=== PATIENT | male | born 1930 | race Caucasian/White ===

== ENCOUNTER 2018-10-24 08:47 | Inpatient (IN) | payer MEDICARE, OTHER ==
[~2018-10-24] VITALS: Ht 175.3 cm; Wt 66.2 kg
[2018-10-24 09:03] VITALS: BP 145/82
[2018-10-24] MEDS ORDERED: IRON325 PO (09:05)
[2018-10-24 09:41] LABS: HEMATOCRIT 37.6 % (42.0-52.0); HEMOGLOBIN 12.8 gm/dL (14.0-18.0); MCH 32.5 pg (26.0-34.0); MCHC 34.1 g/dL (28.0-37.0); MCV 95.2 fL (80.0-100.0); MPV 7.3 fl. (7.2-11.1); NUCLEATED RBCS 0 /100WBC; PLATELET COUNT* 212 thou/uL (150-400); RBC 3.95 mil/uL (4.50-6.00); RDW-CV 13.6 % (10.5-14.5); WBC 9.5 thou/uL (4.0-11.0)
[2018-10-24 09:54] LABS: APTT 27.8 Seconds (25.0-31.3); INR 1.1
[2018-10-24 09:58] LABS: URINE BILIRUBIN NEGATIVE (Negative); URINE BLOOD TRACE (Negative); URINE CLARITY CLEAR; URINE COLOR YELLOW; URINE GLUCOSE-RANDOM NEGATIVE (Negative); URINE KETONES NEGATIVE (Negative); URINE LEUKOCYTES-REFLEX NEGATIVE (Negative); URINE NITRITE-REFLEX NEGATIVE (Negative); URINE PROTEIN TRACE (Negative); URINE UROBILINOGEN 0.2 E.U./dl (0.2-1.0)
[2018-10-24 10:05] LABS: ANION GAP 8 mmol/L (7-16); BUN 21 mg/dL (7-18); CALCIUM 8.7 mg/dL (8.5-10.1); CHLORIDE 97 mmol/L (98-107); CO2 25 mmol/L (21-32); CREATININE 1.1 mg/dL (0.6-1.3); GLUCOSE 108 mg/dL (70-99); POTASSIUM 4.4 mmol/L (3.5-5.1); SODIUM 130 mmol/L (136-145)
[2018-10-24 10:10] LABS: ALBUMIN 3.6 g/dL (3.4-5.0); ALKALINE PHOSPHATASE 51 U/L (46-116); CK-MB MASS 4.6 ng/mL (<0.5-3.6); NT-PRO BRAIN NAT PEPTIDE 6237 pg/mL (<300); SGOT 32 U/L (15-37); SGPT 26 U/L (30-65); TOTAL BILIRUBIN 1.1 mg/dL (<0.1-1.0); TOTAL PROTEIN 7.1 g/dL (6.4-8.2); TROPONIN-I LEVEL <0.06 ng/mL (<0.06)
[2018-10-24 10:11] LABS: ABSOLUTE BASOPHILS 0.2 thou/uL (0.0-0.2); ABSOLUTE LYMPHOCYTES 0.8 thou/uL (0.8-5.3); ABSOLUTE MONOCYTES 0.1 thou/uL (0.0-1.2); ABSOLUTE NEUTROPHILS 8.5 thou/uL (1.6-8.1); PLATELET ESTIMATE ADEQUATE
--- NOTE | 2018-10-24 10:52 | NUR ---
PT BACK FROM CT SCAN VIA STRETCHER
[2018-10-24 15:04] VITALS: BP 158/87
--- NOTE | 2018-10-24 17:17 | NUR ---
THIS NURSE GAVE REPORT TO ALEC VELEZ WHO IS TO ASSUME PT CARE INPATIENT NURSE. PT TO BE TAKEN TO ROOM 230 VIA STRETCHER BY THIS NURSE AND ASSIST X1. PT STILL ATTEMPTING TO PUT LEGS OVER BED. PT ALERT, DROWSY. PT TO BE TAKEN WITH FINISHING SUPERVISOR PLASTIC SHEETS. BELONGINGS PACKED AND PLACED IN BAG, TO BE TAKE TO ROOM WITH PT.
[2018-10-24 17:19] VITALS: BP 135/79
--- NOTE | 2018-10-24 17:40 | EKG ---
[place] [address] ELECTROCARDIOGRAM REPORT Name: BEATRIZ FORD Room: [address] ADM IN .R.#: [id number] Admission: 10/24/18 Attend Phys: Salma John MD Discharge: Date of : 10[birth year]02/[birth year] Report #: [id number] THIS REPORT FOR: //name// [facility] ED Test Date: 2018-10-24 Test Time: 08:59:06 Pat Name: BEATRIZ FORD Department: Room: [facility] Gender: Corporate Law Specialist: Lupe MIMS : 1930 Requested By: Benito Song Order Number: [id number] MD: Aleksander Gallegos Measurements Intervals [place] Rate: 80 P: 31 DE: 182 QRS: -95 QRSD: 151 T: -40 QT: 421 QTc: 486 Interpretive Statements Sinus rhythm Premature ventricular complexes RBBB and LAFB No previous ECG available for comparison Electronically Signed On 10-24-2018 17:40:13 CDT by Aleksander Gallegos [email or web address] <ELECTRONICALLY SIGNED> By: Aleksander Gallegos MD, [facility] 10/24/18 [id number] Aleksander Gallegos MD, [facility] /EPI
--- NOTE | 2018-10-24 17:55 | NUR ---
REC'D REPORT FROM BAG BAILER, PATIENT TO UNIT APPROX 173 VIA GURNEY AND ER STAFF. PATIENT LETHARGIC, MUMBLES NAME, BIRTHDATE. ABLE TO STATE THAT HE'S AT THE HOSPITAL. IMPULSIVE, ATTEMPTS TO PUT LEGS OVER SIDE RAILS. URINAL PROVIDED. BED ALARM IN PLACE. CALL LIGHT GIVEN. ORIENTED TO ROOM AND BED CONTROLS. FREQUENT CHECKS.
[2018-10-24 20:00] VITALS: BP 148/85
[2018-10-25] VITALS: BP 132/69
[2018-10-25 04:52] LABS: HEMATOCRIT 37.4 % (42.0-52.0); HEMOGLOBIN 12.7 gm/dL (14.0-18.0); MCH 32.7 pg (26.0-34.0); MCV 96.2 fL (80.0-100.0); MPV 7.8 fl. (7.2-11.1); RBC 3.89 mil/uL (4.50-6.00); RDW-CV 13.7 % (10.5-14.5); WBC 8.5 thou/uL (4.0-11.0)
[2018-10-25 04:56] VITALS: BP 129/59
[2018-10-25 05:27] LABS: ALBUMIN 3.2 g/dL (3.4-5.0); CALCIUM 8.3 mg/dL (8.5-10.1); CREATININE 1.1 mg/dL (0.6-1.3); POTASSIUM 4.1 mmol/L (3.5-5.1); TOTAL BILIRUBIN 1.5 mg/dL (<0.1-1.0); TOTAL PROTEIN 6.2 g/dL (6.4-8.2)
--- NOTE | 2018-10-25 06:48 | NUR ---
ASSUMED PT CARE AT 1930. ASSESSMENT COMPLETED CHARTED. UNABLE TO MAKE NEEDS KNOWN. PT TRIES TO GET UP WHEN HE HAS TO USE RESTROOM BUT IS TOO WEAK TO SIT UP, JUST TRIES TO PUT HIS LEGS OVER THE SIDE OF THE RAILS. NO C/O PAIN OR DISCOMFORT. AFEBRILE. COMMUNICATES NEEDS EFFECTIVELY WHEN ASKED. Q2TURN TO CHECK FOR INCONTINENCE WHICH HE HAS SOMETIMES. PT RESTING IN BED MOST OF THE NIGHT AND IS WANTING TO GET UP FOR BREAKFAST. WILL CONTINUE TO MONITOR.
[2018-10-25 08:39] VITALS: BP 149/78
--- NOTE | 2018-10-25 09:00 | NUR ---
REC'D REPORT FROM NOC RN, ASSUMED CARE OF PATIENT APPROX 0730. OX4, ABLE TO COMMUNICATE NEEDS TO STAFF. ASSESSMENT COMPLETE, VS OBTAINED. SHIP JOINER IN PLACE, SR. O2 SAT 95% RA. PATIENT ASSISTED TO BATHROOM BY NURSING STAFF, UNSTEADY GAIT, ABLE TO AMBULATE WITH ASSIST. EDUCATION GIVEN R/T FALL RISKS. PATIENT AGREEABLE TO FALL PROTOCOL. CALL LIGHT WITHIN REACH.
--- NOTE | 2018-10-25 11:18 | NUR ---
MET WITH PT TO DISCUSS HOME SITUATION/DC PLANNING. PT LIVES WITH SON. HE STATES HE IS INDEPENDENT AND ACTIVE. WAS WORKING IN YARD YESTERDAY AND STATES 'I DIDN'T DRINK ENOUGH WATER.' PT USES NO EQUIPMENT AND HASN'T HAD HH OR BEEN TO SNF. HE PLANS TO RETURN HOME AT DC. WILL FOLLOW
[2018-10-25 12:00] VITALS: BP 122/62
--- NOTE | 2018-10-25 13:30 | NUR ---
PATIENT HAS COMPLETED DC ORDER. REVIEWED DC INSTRUCTIONS AND MED LIST WITH PATIENT AND SON. ANSWERED QUESTIONS TO THEIR SATISFACTION. DISCONTINUED IV AND PROBATION AND PAROLE OFFICER. RETURNED MONITOR TO STORAGE. PATIENT IN POSSESSION OF ALL BELONGINGS. PATIENT'S SON BILL ACCOMPANIED PATIENT & VOLUNTEER TO FRONT ENTRANCE VIA WC. BILL TO TRANPORT PATIENT TO HOME VIA CAR.
--- NOTE | 2018-10-25 16:58 | NUR ---
PT. DISCHARGED TO HOME PRIOR TO O.T. EVAL. PLEASE ORDER FURTHER O.T. SERVICES IF NEEDED.
== END 2018-10-25 14:20 | disposition home or self-care (01) | DRG 640 ==
LOC: M.ERS 08:47 → M.TBA-ER 10:22 → M.2W 10:22
PROVIDERS: Family Medicine; ADMIT Internal Medicine
DX: E87.1 Hypo-osmolality and hyponatremia (principal); G92 Toxic encephalopathy

== ENCOUNTER 2018-12-23 11:08 | Inpatient (IN) | payer MEDICARE, OTHER | END 2018-12-27 16:29 | disposition short-term general hospital (02) | DRG 469 | LOC: M.ERS 11:08 → M.TBA-ER 12:34 → M.ORTHSURG 13:33 | PROVIDERS: ADMIT Internal Medicine | PROC: 0SRR0JZ Replacement of Right Hip Joint, Femoral Surface with Synthetic Substitute, Open Approach (ICD-10-PCS; principal; 2018-12-24) | DX: M80.051A Age-related osteoporosis with current pathological fracture, right femur, initial encounter for fracture (principal); G93.41 Metabolic encephalopathy; D62 Acute posthemorrhagic anemia; E44.0 Moderate protein-calorie malnutrition; Z68.1 Body mass index [BMI] 19.9 or less, adult; S72.001A Fracture of unspecified part of neck of right femur, initial encounter for closed fracture; R32 Unspecified urinary incontinence; N47.1 Phimosis; F03.90 Unspecified dementia, unspecified severity, without behavioral disturbance, psychotic disturbance, mood disturbance, and anxiety; D63.8 Anemia in other chronic diseases classified elsewhere; W01.0XXA Fall on same level from slipping, tripping and stumbling without subsequent striking against object, initial encounter; Y93.89 Activity, other specified; Y92.89 Other specified places as the place of occurrence of the external cause; Y99.8 Other external cause status; Z87.442 Personal history of urinary calculi ==

== ENCOUNTER 2018-12-27 11:10 | Inpatient (IN) | payer MEDICARE, OTHER ==
[~2018-12-27] VITALS: Ht 175.3 cm; Wt 58.5 kg
[~2018-12-27 11:10] MED LIST: DOK PLUS TABLE1 EACH PO; ELIQUIS5 MG PO; HYDROCODON-ACE1 EAC7 PO; IRON325 PO; PROTONIX40 M1 PO; THERA M PLUS T1 EAC2 PO
--- NOTE | 2018-12-27 16:30 | NUR ---
DISCHARGE NOTE - PT DC'ED TO INPT REHAB. SPOKE WITH ALEC PIMENTEL. NO QUESTIONS. ORDERS GIVEN. IV REMAINS IN PLACE PER . ALL BELONGINGS SENT WITH PT.
--- NOTE | 2018-12-27 18:50 | NUR ---
88 YR OLD MALE PATIENT ADMITTED TO ROOM 321 S/P ORIF OF HIS RIGHT HIP. PT IS A/O, EKWOK. PT SETTLED INTO BED, ORIENTED TO ROOM, BED CONTROLS AND FALL PRECAUTIONS. ADMISSION PROCESS COMPLETED. PT VOIDED 200 CC OF BLANE URINE AND HAD A PVR OF 24ML. FALL PRECAUTIONS AND HOURLY ROUNDING IN PLACE.
[2018-12-27 19:49] VITALS: BP 140/73
--- NOTE | 2018-12-28 01:32 | NUR ---
ASSUMED CARE @ 1929-12/27-SUNDAY.AWAKE IN BED W/ HOB UP.REFUSED ABDUCTOR PILLOW.PREFERS ROLLED BLANKET BETWEEN THIGHS WHILE IN BED.RIGHT LE UP ON A PILLOW @ 1929.SALINE LOCK LEAKING WHEN FLUSHED W/ NS @ 2029 & PULLED OUT. WANTS SCD'S ON @ 2109.MAKING NOISES @ 2314 & WANTS URINAL ON.NURSE PUTS, HOLDS,REMOVES & ERMPTIES URINAL @ NIGHT.PHOTOS TAKEN SCAB ABRASION LEFT ELBOW & DRY SKIN TEAR RIGHT UPPER ARM @ 2319.SEE PAIN MANAGEMENT @ 2342.ON HOURLY ROUNDS.ROUGH ROUNDER DOING ODD HOUR ROUNDS.
[2018-12-28 04:52] LABS: HEMATOCRIT 23.9 % (42.0-52.0); HEMOGLOBIN 7.9 gm/dL (14.0-18.0); MCH 31.2 pg (26.0-34.0); MCV 94.7 fL (80.0-100.0); MPV 8.1 fl. (7.2-11.1); RBC 2.53 mil/uL (4.50-6.00); RDW-CV 13.2 % (10.5-14.5)
[2018-12-28 05:05] LABS: CALCIUM 7.6 mg/dL (8.5-10.1); CREATININE 0.9 mg/dL (0.6-1.3)
--- NOTE | 2018-12-28 05:40 | NUR ---
SLEEPING SINCE 2004 & FROM 2300 TO 0400.AWAKENED BY LAB @ 0400 FOR BLOOD DRAW. USED URINAL X2.FIRST W/ASSIST.SECOND @ 0520-NURSE ONLY EMPTIES URINAL.ABLE TO DO OWN [facility] AFTER VOIDING.URINE ACCIDENT X2.TOOK ONE PACKAGE SALTINE CRACKERS HS SNACK.DRESSING SATURATED @ 0525 & CHANGED.
[2018-12-28 07:55] VITALS: BP 120/62
[2018-12-28 19:25] VITALS: BP 139/76
--- NOTE | 2018-12-29 01:36 | NUR ---
ASSUMED CARE @ -SAT.SITS IN RECLINER W/ LE'S UP.ASSISTED TO BED W/ 2 PERSONS.VERBAL CUES GIVEN TO DO 50% WB RIGHT LE.ROLLED BLANKET BETWEEN THIGHS WHILE IN BED.RIGHT LE UP ON A PILLOW.BED ALARM PUT ON @ 2049.URINAL W/IN REACH.SCD'S ON @ 2049.SEE PAIN MANAGEMENT @ 0034.RIGHT HIP DRSG SATURATED & CHANGED @ 0045.NURSE EMPTIES URINAL @ NIGHT.ON HOURLY ROUNDS.
--- NOTE | 2018-12-29 05:15 | NUR ---
SLEEPING SINCE 2100 & SLEPT GOOD ALL NIGHT.USED URINAL X6.NURSE EMPTIES URINAL.TOOK ONLY ONE PACKAGE SALTINE CRACKERS W/ H20 HS SNACKS.
[2018-12-29 07:55] VITALS: BP 149/70
--- NOTE | 2018-12-29 17:09 | NUR ---
PATIENT UP TO WHEELCHAIR ALL MORNING INTO AFTERNOON, THEN BACK TO WHEELCHAIR FOR EVENING MEAL. RIGHT HIP DRESSING REMAINS INTACT. PRN TYLENOL GIVEN X 2 THIS SHFIT FOR RIGHT HIP PAIN. PATIENT HAD A LARGE BM THIS AM. VOIDING PER URINAL. PATIENT UP WITH SBA WITH USE OF GAIT BELT AND WALKER.
[2018-12-29 19:25] VITALS: BP 125/57
--- NOTE | 2018-12-30 00:09 | NUR ---
ASSUMED CARE @ .AWAKE IN BED W/ HOB UP.BED ALARM ALREADY ON @ 1919.PANTS OFF @ 1934.TEMP @ 1924-99.0 ORAL.TEMP.RE-CHECKED @ 2314-.3 ORAL.SEE PAIN MANAGEMENT @ 2116.SCD'S ON @ 2119.RIGHT LE UP ON A PILLOW. ROLLED BLANKET ON BETWEEN THIGHS.REFUSED ABDUCTOR WEDGE.ON HOURLY ROUNDS. S
--- NOTE | 2018-12-30 05:26 | NUR ---
SEE 2ND PAIN MANAGEMENT @ 0231.AWAKE FROM 1999,2099 TO 040.SLEEPING @ 2200. FOUND SLEEPING @ 0400 & 0500.USED URINAL X5.URINE ACCIDENTS X2.DOES [facility] IND.TOOK 2 PACKAGES SALTINE CRACKERS W/ H20 HS SNACKS.
[2018-12-30 08:00] VITALS: BP 155/78
--- NOTE | 2018-12-30 11:18 | NUR ---
Nutrition: Consult received for "malnutirtion." Pt admitted to rehab with Rt femoral neck FX. Some depression d/t loss of . Started on antidepressant at HS, per chart review. Albumin 2.3, prealb 13.7. Eating 50-100% of meals. +BM. Wt stable 132#. RX: MVI, Fe. Pt appears thin, but I was unable to visit with him this morning as he was with therapies. Will defer malnutrition DX to physician. Will follow weekly on rehab unit. Mild risk.
--- NOTE | 2018-12-30 15:09 | NUR ---
UNABLE TO SEE PT.THIS TODAY HE WAS IN THERAPIES. REVIEWED CHART AND SPOKE WITH NURSING. PRIOR TO FALL AND SURGERY, PT.LIVED AT HOME WITH SON,MARIO. HE WAS INDEPENDENT WITH MOST EVERYTHING. HE STILL DROVE,COOKED,SHOPPED, ABLE TO BATHE AND DRESS BY SELF. SON WORKS DURING THE DAY, BUT IS HOME IN THE EVENINGS AND NIGHT. PT.HAS SOME MILD CONFUSION. HE ONLY USED A CANE PRIOR TO FALL. HE WILL NEED A FRONT WHEELED WALKER. MARIO SAID DURING INPT.ADMISSION THAT IF PT.WAS TO GO TO REHAB, AND NEEDED SOME ASSIST AT DISCHARGE, HIS WORK IS REALLY GOOD ABOUT HIM HAVING TIME OFF. HE WOULD SEE ABOUT TAKING A WEEK OR SO OFF WHEN PT.READY TO LEAVE INPT.REHAB. ALSO HIS AUNT AND UNCLE LIVE IN THE HOUSE BEHIND THEM AND THEY COULD COME OVER TO HELP PT.IF NEEDED. COUSIN ONLY LIVES A FEW STREETS DOWN. CM WILL FOLLOW AND ASSIST NEEDED.
--- NOTE | 2018-12-30 15:55 | NUR ---
ASSUMMED CARE OF PT AT 0730, PT ALERT AND ORIENTED, FORGETFUL, TRANSFERS WITH ASSIST OF 1-2, GB WALKER, CUEING TO MAINTAIN 50% WT BEAR, MINTO, DRESSING INTACT RIGHT HIP, PT VOIDS PER URINAL, PT TEARFUL AT TIMES, WANTS TO GO HOME, TAKING FOOD AND FLUIDS WELL, HAD LUNCH IN DININGROOM, DENIES NEED FOR PAIN MEDICATION, PARTICICIPATED IN ALL THERAPIES, HOURLY ROUNDING COMPLETED, ASSESSMENT COMPLETE, WILL CONTINUE TO MONITOR.
--- NOTE | 2018-12-30 16:20 | NUR ---
I have reviewed the documentation by NUPUR LUCIANO from TODAY to 12/30/18 and I concur with it. AVNI DORAN
[2018-12-30 19:35] VITALS: BP 113/65
--- NOTE | 2018-12-30 19:35 | NUR ---
RESTING QUIETLY IN BED. DENIES DISCOMFORT. RIGHT HIP DRESSING INTACT WITH SEROSANGUOUS DRAINAGE NOTED. RIGHT ELBOW MEPILEX DRY/INTACT. TOOK MEDS WHOLE WITH WATER. CALL LIGHT WITHIN REACH.
--- NOTE | 2018-12-31 05:14 | NUR ---
HAS VOIDED PER URINAL X 5 SO FAR THIS SHIFT. RESTED POORLY. TOOK TYLENOL FOR COMPLAINT OF RIGHT HIP PAIN AT 0142 WITH RELIEF. HOURLY ROUNDING IN PROGRESS.
[2018-12-31 07:49] VITALS: BP 145/75
--- NOTE | 2018-12-31 15:34 | NUR ---
ASSUMMED CARE OF PT AT 0730, PT ALERT AND ORIENTED, FORGETFUL, TRANSFERS WITH MIN ASSIST GB WALKER CUEING, DENIES NEED FOR PAIN MEDICATION, AMBULATED TO BATHROOX 1, VOIDS PER URINAL/TOILET, LARGE BM THIS SHIFT, TAKING FOOD AND FLUIDS WELL, DRESSING INTACT TO RIGHT HIP, MEPILEX INTACT TO RIGHT ELBOW, TO DININGROOM FOR LUNCH, PARTCIPATED IN ALL THERAPIES, HOURLY ROUNDING COMPLETED, ASSESSMENT COMPLETE, WILL CONTINUE TO MONITOR.
--- NOTE | 2018-12-31 15:38 | NUR ---
I have reviewed the documentation by NUPUR LUCIANO from TODAY to 12/31/18 and I concur with it. AVNI DORAN
[2018-12-31 19:15] VITALS: BP 104/54
--- NOTE | 2018-12-31 19:20 | NUR ---
AWAKENED FOR HS REASSESSMENT. DENIES DISICOMFORT. URINAL AND CALL LIGHT WITHIN REACH.
[2019-01-01 04:42] LABS: POTASSIUM 4.2 mmol/L (3.5-5.1)
--- NOTE | 2019-01-01 05:46 | NUR ---
RESTED QUIETLY UNTIL ABOUT 2345. GAVE TYLENOL PER REQUEST AT 2350 AND WAS ABLE TO GET BACK TO SLEEP AFTERWARDS. VOIDED PER URINAL DURING THE NIGHT. HOURLY ROUNDING IN PROGRESS.
[2019-01-01 07:00] VITALS: BP 141/66
--- NOTE | 2019-01-01 16:25 | NUR ---
I have reviewed the documentation by NUPUR LUCIANO from TODAY to 01/01/19 and I concur with it. AVNI DORAN
--- NOTE | 2019-01-01 16:29 | NUR ---
JONNY and Dr Bowen met with pt to review team conference summary and plan for pt to remain on rehab unit one more week with plan for team to reassess pt length of stay during team conference next Tuesday 01/09. Pt brother in law and sister in law present. Pt in agreement with plan. SW to continue to follow to assist with safe dc planning.
--- NOTE | 2019-01-01 17:39 | NUR ---
AM ASSESSMENT AND VITAL SIGNS COMPLETED DOCUMENTED. PT CONTINUES TO WORK WITH ALL THERAPIES. PT REQUIRES FREQUENT REMINDERS TO MAINTAIN 50% WT BEARING TO THE RIGHT LEG. DRESSING TO THE RIGHT HIP IS C/D/I. FALL PRECAUTIONS AND HOURLY ROUNDING CONTINUES.
[2019-01-01 19:35] VITALS: BP 112/65
--- NOTE | 2019-01-02 00:23 | NUR ---
ASSUMED CARE @ 1934-.AWAKE IN BED W/ HOB UP.ROLLED BLANKET BETWEEN THIGHS.RLE UP ON A PILLOW @ 1934.BED ALARM ON ALREADY @ 1934.URINAL W/IN REACH.REFUSED TO REMOVE PANTS @ 1934.PATIENT REMOVES PANTS @ 2049.NURSE EMPTIES URINAL @ NIGHT.SCD'S PUT ON @ 2199.ON HOURLY ROUNDS.
--- NOTE | 2019-01-02 05:55 | NUR ---
slept late @ 0000-8 & SLEEPING @ 0300,0400 & 0500.REFUSED PAIN MEDS WHEN OFFERED 2X.USED URINAL X6 W/ URINE ACCIDENT X1.TOOK 2 PACKAGES SALTINE CRACKERS W/ H20 HS SNACKS.
[2019-01-02 08:00] VITALS: BP 142/60
[2019-01-02 20:15] VITALS: BP 137/73
--- NOTE | 2019-01-03 01:15 | NUR ---
ASSUMED CARE @ 1924-.AWAKE IN BED W/ HOB UP.URINAL W/IN REACH.ROLLED BLANKET BETWEEN THIGHS.BED ALARM PUT ON @ 1924.SCD'S ON ALREADY @ 1924.REFUSED TO REMOVE SWEAT PANTS.RIGHT LE UP ON A PILLOW @ 2019.ON HOURLY ROUNDS.
[2019-01-03 04:30] LABS: CALCIUM 8.5 mg/dL (8.5-10.1); POTASSIUM 4.8 mmol/L (3.5-5.1)
--- NOTE | 2019-01-03 05:04 | NUR ---
SLEEPING SINCE 2100 & SLEPT GOOD ALL NIGHT.DENIES ANY PAIN DURING NIGHT. USED URINAL X3 DURING NIGHT.NURSE EMPTIES URINAL @ NIGHT.URINE ACCIDENT X1.PANTS REMOVED @ 0320.AWAKENED BY LAB FOR BLOOD DRAW @ 0310.TOOK ONE PACKAGE SALTINE CRACKERS W/ H20 HS SNACKS.
[2019-01-03 09:30] VITALS: BP 142/67
--- NOTE | 2019-01-03 15:26 | NUR ---
PATIENT REPORTS RELEIF FROM TYLENOL FOR RT HIP PAIN. SITTING IN RECLINER, ALERT AND ORIENTED X 4. USES GAIT BELT AND WALKER TO/FROM RESTROOM.
[2019-01-03 20:00] VITALS: BP 151/66
--- NOTE | 2019-01-04 05:07 | NUR ---
ALERT AND ORIENTED. PLEASANT. DENIED ANY FURTHER ARM PAIN OR NEED FOR PAIN MEDS. DRSG INTACT TO RIGHT HIP. MIN ASSIST WITH GAIT BELT AND WALKER. UNSTEADY AT TIMES. USED URINAL AT NIGHT. RN EMPTIED. CALL LIGHT IN REACH AND BED ALARM ON.
[2019-01-04 07:40] VITALS: BP 140/63
--- NOTE | 2019-01-04 17:51 | NUR ---
PATIENT RESTING UP IN CHAIR. PATIENT IS UP STANDBY ASSIST WITH WALKER AND BAIT BELT. PATIENT USES TOILET WITH STOOL RISER AND DOES OWN SELF CARE. PATIENT HAD COMPLAINT SOF PAIN, TRETED WITH TYLENOL. PATIENT HAS GOOD APPETITE. PATIENT DENIES ANY NEEDS AT THIS TIME. CALL LIGHT WITHIN REACH. WILL CONTINUE TO MONITOR.
[2019-01-04 20:00] VITALS: BP 130/61
--- NOTE | 2019-01-05 05:54 | NUR ---
ALERT AND ORIENTED. PLEASANT. C/O PAIN TO RIGHT HIP/GROIN. AGREEABLE TO TAKING NORCO. TYLENOL AND ICE PACK ALSO GIVEN. RLE EDEMA. LEG UP ONTO PILLOW IN BED. USED URINAL SEVERAL TIMES OVERNIGHT. RN EMPTIED. SLEPT LITTLE OFF AND ON. CALL LIGHT IN REACH AND BED ALARM ON.
[2019-01-05 07:20] VITALS: BP 167/83
[2019-01-05 09:16] LABS: CALCIUM 8.6 mg/dL (8.5-10.1); POTASSIUM 4.2 mmol/L (3.5-5.1)
--- NOTE | 2019-01-05 17:44 | NUR ---
PATIENT RESTING UP IN CHAIR. PATIENT HAS HAD COMPLAINTS OF PAIN TO RIGHT HIP, TREATED ADEQUATELY WITH TYLENOL. PATIENT IS UP WITH ASSIST WITH GAIT BELT AND WALKER. PATIENT DENIES ANY NEEDS AT THIS TIME. CALL LIGHT WITHIN REACH. WILL CONTINUE TO MONITOR.
[2019-01-05 20:00] VITALS: BP 122/63
--- NOTE | 2019-01-06 05:11 | NUR ---
ALERT AND ORIENTED. PLEASANT. C/O PAIN TO RIGHT HIP. ONLY AGREEABLE TO TAKING TYLENOL AND ICE PACK. PT USED URINAL OVERNIGHT AT LEAST 10 TIMES (ALMOST HOURLY). VOIDED 100-300 CC EACH CLEAR YELLOW. PT ALSO SAYS THAT WAS DRINKING A LOT MORE DURING THE DAY BECAUSE "THAT IS WHAT THE DOCTOR TOLD ME TO DO." BLADDER SCANNED TWICE SHOWED 50-70 CC PVR. PT SLEPT LITTLE DUE TO VOIDING. USING CALL LIGHT. WILL CONTINUE TO MONITOR.
[2019-01-06 07:37] LABS: ALBUMIN 2.6 g/dL (3.4-5.0); CALCIUM 8.5 mg/dL (8.5-10.1); CREATININE 1.1 mg/dL (0.6-1.3); POTASSIUM 3.9 mmol/L (3.5-5.1); TOTAL BILIRUBIN 1.2 mg/dL (<0.1-1.0); TOTAL PROTEIN 6.3 g/dL (6.4-8.2)
[2019-01-06 07:51] VITALS: BP 136/68
[2019-01-06 08:21] LABS: URINE BILIRUBIN NEGATIVE (Negative); URINE BLOOD NEGATIVE (Negative); URINE CLARITY CLEAR; URINE COLOR YELLOW; URINE GLUCOSE-RANDOM NEGATIVE (Negative); URINE KETONES NEGATIVE (Negative); URINE LEUKOCYTES-REFLEX NEGATIVE (Negative); URINE NITRITE-REFLEX NEGATIVE (Negative); URINE PROTEIN NEGATIVE (Negative)
[2019-01-06 20:00] VITALS: BP 104/61
--- NOTE | 2019-01-07 06:12 | NUR ---
ALERT AND ORIENTED. PLEASANT ALTHOUGH SEEMED DOWN IN SPIRITS. TYLENOL GIVEN FOR RIGHT HIP PAIN. MIN ASSIST WITH GAIT BELT AND WALKER. 50% WT BEARING RLE. ONLY USED URINAL 4 TIMES OVERNIGHT. HAD BETTER NIGHT AND WAS ABLE TO SLEEP SOME. CALL LIGHT IN REACH AND BED ALARM ON.
[2019-01-07 08:00] VITALS: BP 126/58
--- NOTE | 2019-01-07 15:54 | NUR ---
I have reviewed the documentation by NUPUR LUCIANO from 01/06/19 to 01/07/19 and I concur with it. AVNI DORAN
--- NOTE | 2019-01-07 16:39 | NUR ---
pt has participated with therapies. dressing dry and intact to rt, hip. prn tylenol given x2 today with good effect. pt is bright today and feels he is improving. pt is contionent of b+b and calls for assist with all ambulation with walker and gaitbelt. pt remains alert and orientated.
[2019-01-07 19:15] VITALS: BP 136/69
--- NOTE | 2019-01-07 19:15 | NUR ---
SITTING UP IN RECLINER WITH LEGS ELEVATED WATCHING TV. STATES RIGHT HIP PAIN AT A "3". DOESN'T WANT ANYTHING STRONGER THAN TYLENOL AND RECEIVED TYLENOL AT 1800. STATES CAN WAIT UNTIL CAN HAVE MORE TYLENOL. AMBULATED TO THE BATHROOM WITH SBA, GAITBELT, WALKER. ABLE TO ADJUST PANTS AND DO OWN HYGIENE. SNACK PROVIDED. WENT TO BED. CALL LIGHT AND URINAL WITHIN REACH.
--- NOTE | 2019-01-08 05:34 | NUR ---
RESTED UNTIL ABOUT 0150 AND THEN WAS UNABLE TO GO BACK TO SLEEP. TYLENOL GIVEN AT THIS TIME PER REQUEST AND THEN PATIENT WAS ABLE TO GET BACK TO SLEEP. USED URINAL X TWO DURING THE NIGHT. HOURLY ROUNDING IN PROGRESS.
[2019-01-08 07:55] VITALS: BP 145/58
--- NOTE | 2019-01-08 16:09 | NUR ---
JONNY and Dr Bowen met with pt to review team conference summary and plan for pt to dc home with family support on Sunday. And services to follow. Pt in agreement with plan. Pt son aware of dc plan as well. SW to continue to follow to assist with safe dc planning.
--- NOTE | 2019-01-08 17:31 | NUR ---
PATIENT RESTING UP IN CHAIR. PATIENT HAS HAD COMPLAINTS OF PAIN TO RIGHT HIP, TREATED ADEQUATELY WITH TYLENOL. PATIENT HAS BEEN UP WITH THERAPIES TODAY. PATIENT IS TO MAINTAIN 50% WEIGHT BEARING. PATIENT IS UP WITH MINIMAL ASSIST WITH WALKER AND NEEDS TO BE PROMPTED TO MAINTAIN 50% WEIGHT. PATIENT HAS GOOD APPETITE. PATIENT DENIES ANY NEEDS AT THIS TIME. CALL LIGHT WITHIN REACH. WILL CONTINUE TO MONITOR.
[2019-01-08 19:50] VITALS: BP 120/67
--- NOTE | 2019-01-08 19:50 | NUR ---
SITTING UP IN RECLINER WITH LEGS ELEVATED. DENIES DISCOMFORT. AMBULATED TO THE BATHROOM WITH SBA, GAITBELT, WALKER. DID OWN CLOTHING ADJUSTMENTS. WENT TO SINK TOOK DENTURES OUT AND PUT THEM TO SOAK THEN WENT TO BED. DECLINED OFFER OF A SNACK. CALL LIGHT WITHIN REACH.
--- NOTE | 2019-01-09 05:15 | NUR ---
RESTED QUIETLY. USE URINAL X 2 DURING THE NIGHT. HOURLY ROUNDING IN PROGRESS.
[2019-01-09 07:20] VITALS: BP 134/72
--- NOTE | 2019-01-09 16:11 | NUR ---
I have reviewed the documentation by NUPUR LUCIANO from 01/08/19 to 01/09/19 and I concur with it. AVNI DORAN
--- NOTE | 2019-01-09 17:41 | NUR ---
PATIENT RESTING UP IN CHAIR. PATIENT HAS COMPLAINTS OF RIGHT HIP PAIN, TREATED ADEQUATELY WITH TYLENOL. PATIENT IS UP WITH MINIMAL ASSIST WITH GAIT BELT AND WALKER, NEEDS CUEING FOR WEIGHT BEARING LIMITATIONS. PATIENT DOES OWN BATHROOM HYGIENE. PATINET HAS GOOD APPETITE. PATIENT DENIES ANY NEEDS AT THIS TIME. CALL LIGHT WITHIN REACH. WILL CONTINUE TO MONITOR.
[2019-01-09 20:00] VITALS: BP 135/67
--- NOTE | 2019-01-10 05:25 | NUR ---
PT ALERT AND ORIENTED X 4. PLEASANT. TYLENOL GIVEN FOR RIGHT HIP/GROIN PAIN. RIGHT HIP INCISION WELL APPROXIMATED AND DIRECT CARE PROVIDER. MIN ASSIST WITH GAIT BELT AND WALKER. PT REQUESTED TO GET UP TO USE BATHROOM DURING THE NIGHT INSTEAD OF USING URINAL. GOT UP SEVERAL TIMES OVERNIGHT. SLEPT OFF AND ON. CALL LIGHT IN REACH AND BED ALARM ON.
[2019-01-10 08:30] VITALS: BP 132/67
--- NOTE | 2019-01-10 15:14 | NUR ---
I have reviewed the documentation by NUPUR LUCIANO from TODAY to 01/10/19 and I concur with it. AVNI DORAN
--- NOTE | 2019-01-10 17:21 | NUR ---
PT CALLS FOR ASSIST UP TO BATHROOM OR RECLINER WITH GAITBLET AND SBA OF 1.PRN FOR PAIN PLAIN TYLENOL GIVEN WITH GOOD EFFECT. THIS AM AND AFTERNOON. PT VOIDS WELL AND HAS HAD MOD SOFT BM X2 TODAY AND IS ABLE TO CLEANSE SELF AND ADJUST CLOTHING. INCISION TO RT. HIP INTACT WITH NO DISCOLORATION NOTED. PT REMAINS ALERT AND ORIENTATED.
[2019-01-10 19:56] VITALS: BP 116/61
--- NOTE | 2019-01-11 05:30 | NUR ---
PT ALERT AND ORIENTED X4, POLITE AND COOPERATIVE WITH CARES. DENIES PAIN. HIP INCISION WELL APPROXIMATED AND BUSINESS OBJECTS ANALYST. UP WITH MIN ASSIST, GAIT BELT AND WALKER. PT UP TO BATHROOM SEVERAL TIMES TO VOID. SLEPT WELL OVERNIGHT. USES CALL LIGHT APPROPRIATELY. CALL LIGHT AND FREQUENTLY USED ITEMS IN REACH. HOURLY ROUNDING IN PROGRESS, WILL CONTINUE TO MONITOR.
[2019-01-11 08:01] VITALS: BP 144/70
--- NOTE | 2019-01-11 15:52 | NUR ---
ASSUMMED CARE OF PT AT 0730, PT ALERT AND ORIENTED, TRANSFERS WITH SBA, GB WALKER, AMBULATED TO DININGROOM FOR LUNCH, PT DOES NEED CUEING TO MAINTIN 50% WB TO RIGHT LEG, INCISION EMISSION SPECIALIST, DENIES PAIN, AMBULATES TO BATHROOM TO VOID, TAKING FOOD AND FLUIDS WELL, PARTCIPATED IN ALL THERAPIES, HOURLY ROUNDING COMPLETED, ASSESSMENT COMPLETE, WILL CONTINUE TO MONITOR.
--- NOTE | 2019-01-11 19:35 | NUR ---
RESTING QUIETLY IN BED. TYLENOL GIVEN PER REQUEST FOR COMPLAINT OF RIGHT HIP PAIN RATED "3". CALL LIGHT AND URINAL WITHIN REACH.
[2019-01-11 20:00] VITALS: BP 131/65
--- NOTE | 2019-01-12 05:32 | NUR ---
UP X 3 DURING THE NIGHT TO THE TOILET TO VOID. PASSING FLATUS. NO FURTHER COMPLAINT OF PAIN. HOURLY ROUNDING IN PROGRESS.
[2019-01-12 07:56] VITALS: BP 136/65
--- NOTE | 2019-01-12 16:58 | NUR ---
ASSUMMED CARE OF PT AT 0730, PT ALERT AND ORIENTED, TRANSFERS WITH SBA, GB WALKER, DENIES PAIN, AMBULATES TO BATHROOM TO VOID, AMBULATED TO DININGROOM FOR LUNCH, TAKING FOOD AND FLUIDS WELL, INCISION HEALING AND JOSE G, NEEDS REMINDING TO MAINTAIN 50% WEIGHT BEAR TO RIGHT LEG, PT DID GROOMING AT SINK, BUT REFUSED BATHING THIS SHIFT, HOURLY ROUNDING COMPLETED, ASSESSMENT COMPLETE, WILL CONTINUE TO MONITOR.
[2019-01-12 20:00] VITALS: BP 120/64
--- NOTE | 2019-01-13 02:11 | NUR ---
ASSUMED CARE AT 1930. PATIENT RESTING IN BED, SLEEPING AT CHANGE OF SHIFT. AWAKENED FOR MEDS AND ASSESSMENT. TURNS SELF. UP WITH SBA, GAIT BELT, WALKER. NEEDS CUEING TO REMEMBER 50% WB TO RLE. VOIDS PER TOILET. DOES ALL CARES. TAKES PILLS WHOLE WITH WATER WITHOUT DIFF. MEDICATED ONCE THUS FAR FOR PAIN WITH APAP, SEE AUG. INCISION JOSE G, AND HEALING WELL. HOURLY ROUNDS CONTINUE. BED ALARM ON. CALL LITE IN REACH.
--- NOTE | 2019-01-13 05:05 | NUR ---
SLEPT MOST OF THE NIGHT. UP TO VOID ONCE PER TOILET. MEDICATED FOR PAIN, SEE AUG. TURNS SELF. HOURLY ROUNDS CONTINUE. BED ALARM ON. CALL LITE IN REACH.
[2019-01-13 08:23] VITALS: BP 136/67
[2019-01-13 10:36] VITALS: BP 136/67
[2019-01-13 10:41] VITALS: BP 136/67
[2019-01-13 10:50] VITALS: BP 136/67
[2019-01-13] MEDS ORDERED: ECOTRIN325 MG PO (11:57)
[2019-01-13] MEDS ORDERED: TYLENOL325 MG PO (12:10)
--- NOTE | 2019-01-13 12:52 | NUR ---
PT READY TO GO HOME WITH SON WITH ALL BELONGINGS AND ISSUED WALKER. PT IS ALERT AND ORIENTATED.PAIN WELL CONTROLLED WITH PLAIN TYLENOL. PT HAS REMAINED CONTINENT OF BOWEL AND BLADDER. PT HAS EATEN MEALS IN DINNINGROOM. DISCUSSED FOLLOW UP WITH PT AND SON. INCISION TO RT. HIP INATACT AND APPEARS WELL HEALED.
--- NOTE | 2019-01-13 13:32 | NUR ---
ELECTRICAL MECHANICAL TECHNICIAN INFORMED THAT THE PATIENT WILL D/C HOME TODAY WITH HH, AND WILL NEED A WALKER FOR HOME USE. D/C SLOT HOST SPOKE TO THE PATIENT TO DISCUSS THIS AND HE IS IN AGREEMENT WITH THE PLAN. PATIENT REQUES HH WITH [facility], BUT INFORMED BY INTAKE WITH [facility] THAT THEY ARE UNABLE TO ACCEPT THE PATIENT THEY 'DO NOT PROVIE SERVICE IN THE PATIENT'S AREA'. PATIENT ACCEPTS HH WITH [facility]. CHOICE OF VENDOR FORM COMPLETED AND PLACED ON CHART. [facility] ACCEPTED PATIENT AND WILL CONTACT HIM TO ARRANGE A TIME TO VISIT. PATIENT INFORMS THAT HIS SON WILL PROVIDE TRANSPORT HOME. D/C SLOT HOST SPOKE TO KAYE WITH [facility] [employer] AND SHE CONFIRMS APPROVAL FOR A WALKER FOR THE PATIENT, AND P.T. S INFORMED AND WILL DISPENSE A WALKER FROM THE [facility]. CM WILL REMAIN AVAILABLE TO ASSIST AND FOLLOW NEEDED. [facility] N PHONE: [phone] FAX: [phone]
== END 2019-01-13 12:55 | disposition home health service (06) | DRG 536 ==
LOC: M.REH 11:10
PROVIDERS: Internal Medicine; Nurse Practitioner Family; ADMIT Physical Medicine & Rehabilitation
DX: S72.001A Fracture of unspecified part of neck of right femur, initial encounter for closed fracture (principal); F32.9 Major depressive disorder, single episode, unspecified; S09.90XA Unspecified injury of head, initial encounter; W18.39XA Other fall on same level, initial encounter; Y93.89 Activity, other specified; Y92.89 Other specified places as the place of occurrence of the external cause; Y99.8 Other external cause status

== ENCOUNTER 2019-01-21 05:14 | Inpatient (IN) | payer MEDICARE, OTHER ==
[~2019-01-21] VITALS: Ht 152.4 cm; Wt 61.6 kg
[2019-01-21] VITALS: BP 139/55
[~2019-01-21 05:14] MED LIST changes: +ECOTRIN325 MG PO; +TYLENOL325 MG PO
[2019-01-21 05:18] VITALS: BP 169/94
[2019-01-21 05:40] LABS: ABSOLUTE BASOPHILS 0.1 thou/uL (0.0-0.2); ABSOLUTE EOSINOPHILS 0.2 thou/uL (0.0-0.7); ABSOLUTE LYMPHOCYTES 1.3 thou/uL (0.8-5.3); ABSOLUTE MONOCYTES 0.5 thou/uL (0.0-1.2); ABSOLUTE NEUTROPHILS 5.2 thou/uL (1.6-8.1); BASOPHILS 1.3 %; EOSINOPHILS 2.7 %; HEMATOCRIT 28.9 % (42.0-52.0); HEMOGLOBIN 9.5 gm/dL (14.0-18.0); LYMPHOCYTES 17.6 %; MCHC 32.7 g/dL (28.0-37.0); MCV 97.6 fL (80.0-100.0); MONOCYTES 7.3 %; MPV 6.7 fl. (7.2-11.1); NUCLEATED RBCS 0 /100WBC; PLATELET COUNT* 348 thou/uL (150-400); POLYS 71.1 %; RBC 2.96 mil/uL (4.50-6.00); RDW-CV 14.8 % (10.5-14.5); WBC 7.3 thou/uL (4.0-11.0)
[2019-01-21 05:51] LABS: CALCIUM 8.7 mg/dL (8.5-10.1); CREATININE 0.9 mg/dL (0.6-1.3); POTASSIUM 3.7 mmol/L (3.5-5.1)
[2019-01-21 05:55] LABS: TOTAL BILIRUBIN 0.8 mg/dL (<0.1-1.0)
[2019-01-21 08:32] VITALS: BP 158/72
[2019-01-21 09:00] VITALS: BP 161/77
--- NOTE | 2019-01-21 11:39 | EKG ---
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: [place] : 1930 Requested By: Rashida Miller Order Number: [id number] MD: Db Blank Measurements Intervals [place] Rate: 69 P: -24 ND: 195 QRS: -70 QRSD: 151 T: -26 QT: 427 QTc: 458 Interpretive Statements Sinus rhythm Right bundle branch block Inferior infarct, age indeterminate Compared to ECG 12/23/2018 11:27:12 No significant changes Electronically Signed On 01-21-2019 11:39:21 CDT by Db Blank [email or web address] <ELECTRONICALLY SIGNED> By: Db Blank MD, [facility] 01/21/19 [id number] Db Blank MD, [facility] /EPI
[2019-01-21 16:06] VITALS: BP 133/67
--- NOTE | 2019-01-21 18:04 | NUR ---
PT A&Ox4. VITALS STABLE. HARD OF HEARING. BEDREST. SURGERY TOMORROW. IV PATENT, INFUSING. NPO AFTER MIDNIGHT. PAIN CONTROLLED WITH NORCO. DENIED N/V. FALL PRECAUTIONS IN PLACE. CALL LIGHT WITHIN REACH. WILL CONTINUE TO MONITOR.
[2019-01-21 20:30] VITALS: BP 141/61
[2019-01-22] VITALS: BP 139/55
[2019-01-22 02:53] VITALS: BP 141/61
[2019-01-22 04:00] VITALS: BP 155/79
[2019-01-22 04:52] LABS: ABSOLUTE BASOPHILS 0.1 thou/uL (0.0-0.2); ABSOLUTE EOSINOPHILS 0.2 thou/uL (0.0-0.7); ABSOLUTE MONOCYTES 0.7 thou/uL (0.0-1.2); ABSOLUTE NEUTROPHILS 5.5 thou/uL (1.6-8.1); BASOPHILS 1.2 %; EOSINOPHILS 2.3 %; HEMATOCRIT 25.3 % (42.0-52.0); HEMOGLOBIN 8.4 gm/dL (14.0-18.0); LYMPHOCYTES 13.8 %; MCH 32.6 pg (26.0-34.0); MCHC 33.3 g/dL (28.0-37.0); MCV 97.9 fL (80.0-100.0); MONOCYTES 8.9 %; MPV 6.8 fl. (7.2-11.1); NUCLEATED RBCS 0 /100WBC; PLATELET COUNT* 306 thou/uL (150-400); POLYS 73.8 %; RBC 2.58 mil/uL (4.50-6.00); RDW-CV 14.9 % (10.5-14.5); WBC 7.4 thou/uL (4.0-11.0)
[2019-01-22 04:56] LABS: CALCIUM 8.6 mg/dL (8.5-10.1); CREATININE 0.9 mg/dL (0.6-1.3)
[2019-01-22 04:58] LABS: POTASSIUM 4.8 mmol/L (3.5-5.1)
--- NOTE | 2019-01-22 05:23 | NUR ---
PT SLEPT FAIRLY WELL OVERNIGHT. HYDROCODONE GIVEN ONCE FOR CO R LEG PAIN WITH GOOD RESULT. RAC IVF INFUSING PER PUMP. VSS. USING URINAL TO VOID. [place]. HAS BEEN NPO SINCE MIDNIGHT. AM LABS DRAWN. BEDREST OVERNIGHT. PT PULLED UP IN BED AND ADJUSTED FOR COMFORT Q2 HOURS AND PRN OVERNIGHT, REFUSING TURNS DUE TO R HIP PAIN. ABLE TO USE CALL LITE AND MAKE NEEDS KNOWN. ANTICOAGULANTS HELD PER DR ORDERS. STERI STRIPS REMAIN INTACT TO NOSE, BRUISING TO FACE FROM PREVIOUS FALL.
[2019-01-22 07:44] VITALS: BP 145/96
[2019-01-22 09:49] LABS: INR 1.1; PROTIME 11.3 Seconds (9.20-11.50)
--- NOTE | 2019-01-22 12:08 | NUR ---
PT.SLEEPING. SON,TREVOR, AND HIS COUSIN AT BEDSIDE. PT.KNOWN FROM PREVIOUS ADMISSION IN DECEMBER. HE CONTINUES TO LIVE WITH HIS SON,TREVOR. HE HAD A INPT.REHAB STAY AFTER HIS SURGERY. WENT HOME MID JANUARY WITH HOME HEALTH NSG,PT,OT. HE HAS A WALKER AND SHOWER BENCH. SON SAID HE WAS GETTING ALONG PRETTY GOOD. HE WOULD LIKE TO SEE PT.GO TO INPT.REHAB AGAIN AFTER RECOVERY FROM SURGERY. SURGERY SCHEDULED FOR TODAY AT 1300. WILL FOLLOW.
--- NOTE | 2019-01-22 16:52 | NUR ---
*PRIOR TO SURGERY* PT A&Ox4. VITALS STABLE. PAIN CONTROLLED WITH MORPHINE. DENIED N/V. BEDREST. CURRENTLY IN SURGERY, WILL UPDATE WHEN ARRIVED BACK TO FLOOR.
[2019-01-22 20:00] VITALS: BP 139/91
[2019-01-23] VITALS: BP 139/72
[2019-01-23 03:44] LABS: HEMATOCRIT 31.5 % (42.0-52.0)
[2019-01-23 03:46] LABS: HEMOGLOBIN 10.5 gm/dL (14.0-18.0)
[2019-01-23 04:00] VITALS: BP 103/54
--- NOTE | 2019-01-23 05:42 | NUR ---
REPORT RECIEVED FROM PACU NURSE AT BEDSIDE. ASSUMED CARE OF PATIENT. PT DROWZY AND ONLY ABLE TO ANSWER YES AND NO QUESTIONS. PAIN MEDS GIVEN PER E-AUG. DRESSING REMAINS C/D/I, WANG VISABLE. WOUND VAC IN PLACE WITH NO OUTPUT. MAGUIRE IN PLACE. WILL CONTINUE WITH PLAN OF CARE.
[2019-01-23 08:15] VITALS: BP 81/44
[2019-01-23 10:17] VITALS: BP 99/49
--- NOTE | 2019-01-23 14:03 | NUR ---
NOTED PT HAS REHAB EVAL, CM TO FOLLOW
[2019-01-23 16:30] VITALS: BP 108/68
--- NOTE | 2019-01-23 17:21 | NUR ---
PATIENT WORKED WITH PT/OT ORDERED. PRN VICODIN AND OXY IR GIVEN FOR RIGHT HIP PAIN. RIGHT HIP DRESSING REMAINS WITH WOUND VAC IN PLACE, MINIMAL DRAINAGE NOTED TO BELLE. DR. STONE NOTIFIED OF SOFT BP THIS AM, PERMORMED MANUALLY AND CHARTED NEW VALUE. PATIENT PO ENCOURAGED, MAGUIRE DRAINING MINIMAL AMOUNT OF BLANE URINE. DR. STONE NOTIFIED AND ORDERS RECEIVED FOR 500ML NS BOLUS. PATIENT UP TO CHAIR AT 1400.
[2019-01-23 21:15] VITALS: BP 127/65
[2019-01-24] VITALS: BP 128/61
[2019-01-24 04:00] VITALS: BP 128/49
--- NOTE | 2019-01-24 05:24 | NUR ---
PT SLEPT MOST OF SHIFT. ASSESSMENT DOCUMENTED. MEDS GIVEN PER E-AUG. IV PATNET. FLUIDS FINISHED INFUSING. WOUND VAC IN PLACE. MAGUIRE DRAINING. SCD'S IN PLACE. PT STATES HE HAS NOT HAD ANY PAIN SO FAR THIS SHIFT. WILL CONTINUE WITH PLAN OF CARE.
[2019-01-24 08:00] VITALS: BP 133/50
[2019-01-24 11:21] LABS: HEMATOCRIT 26.3 % (42.0-52.0); HEMOGLOBIN 8.8 gm/dL (14.0-18.0)
--- NOTE | 2019-01-24 12:25 | NUR ---
PT.UP IN CHAIR. VERY PLEASANT. NIECE VISITING. DISCUSSED SNFS WITH HER AND PT. HE SAID IT WOULD BE BEST TO CALL MARIO,HIS SON. CALLED MARIO ON CELL. HE WOULD PREFER [facility] OR [facility]. WILL MAKE REFERRALS TO BOTH. POSSIBLE DISCHARGE SUNDAY.
--- NOTE | 2019-01-24 12:43 | NUR ---
WOUND CARE NOTE: CONSULT RECEIVED FOR RIGHT HIP ORIF, WOUND VAC PLACED. PATIENT IS POD #2. INCISIONAL WOUND VAC HAD BEEN APPLIED. CURRENTLY FUNCTIONING APPROPRIATELY. PLAN IS FOR PATIENT TO DISCHARGE TO FACILITY TOMORROW. CALLS MADE TO [facility] IN ATTEMPTS TO COLLABORATE ON PATIENT'S DISCHARGE. SPOKE WITH DR. Karuna KIM. WILL BRING MEPILEX [facility] TO PATIENT'S ROOM AND PREVENA PLUS IS BEING BROUGHT OVER FROM [facility] TO [facility] IN PATIENT'S ROOM. PLAN IS FOR [facility] TEAM TO DECIDE WHICH DRESSING TO APPLY TOMORROW, BOTH DRESSINGS SHOULD BE IN PATIENT'S ROOM.
[2019-01-24 13:34] VITALS: BP 133/50
--- NOTE | 2019-01-24 14:15 | NUR ---
ANNA/ADMISSIONS AT [facility], CAME OUT TO SEE PT. SHE SAID THEY CAN ACCEPT PT.WHEN HE IS READY FOR DISCHARGE. CAN ACCEPT ON SAT.IF NEEDED. CM WILL GIVE SAT.CM HER CELL NUMBER. SHE IS GOING TO REACH OUT TO SON,BILL AND LET HIM KNOW THEY CAN ACCEPT. [facility] ALSO SAID THEY CAN ACCEPT PT.TOMORROW TO A SKILLED BED,IF DISCHARGED. BOTH FACILITIES ARE AWARE PT.WILL BE COMING WITH A PREVENA WOUND VAC.
[2019-01-24 16:32] VITALS: BP 111/47
--- NOTE | 2019-01-24 16:38 | NUR ---
PATIENT MAGUIRE DC'D THIS AM PER DR. PENG'S ORDERS. PATIENT HAS NOT VOIDED AT THIS TIME, BLADDER SCAN AT [address] PENG NOTIFIED AND ENCOURAGE PO INTAKE. IV DC'D BY PATIENT WHILE NAPPING, OK TO LEAVE OUT PER DR. PENG. PLAN FOR PATIENT TO DC TO SNF TOMORROW, PATIENT SON CHOSE [facility] AND WILL ACCEPT PATIENT. ORDER LEFT FOR CM FOR TOMORROW. WOUND VAC TO RIGHT HIP REMAINS IN PLACE, PER [facility]TH[facility] WILL MANAGER BUSINESS TO [facility] FOR SNF TOMORROW PRIOR TO DC. PRN VICODIN GIVEN THIS SHIFT WITH THERAPIES OTHERWISE PATIENT DOESNT COMPLAIN OF ANY PAIN. ICE PACK REMAINS TO RIGHT HIP, HIP PRECAUTIONS.
--- NOTE | 2019-01-24 16:48 | NUR ---
SPOKE WITH SON,MARIO ,ON PHONE. TOLD HIM BOTH FACILITIES THAT HE HAD ME MAKE REFERRALS TO CAN ACCEPT HIS DAD. HE SAID [facility] CALLED HIM AND HE WENT TO TOUR. HE SAID IT LOOKED NICE TO HIM. HE CHOSE [facility]. NOTIFIED ANNA THAT SON CHOSE THEIR FACILITY.
--- NOTE | 2019-01-24 18:42 | NUR ---
SPOKE WITH [facility] AND PATIENT TO GO TO REHAB TOMORROW EARLY AM. DR. PENG AWARE AND ORTHOPEDICS OK FOR PATIENT TO GO TO REHAB WITH CURRENT WOUND VAC IN PLACE.
[2019-01-24 20:58] VITALS: BP 120/60
--- NOTE | 2019-01-25 06:31 | NUR ---
SEVERAL PAIN ASSESSMENTS THROUGHOUT SHIFT, HE NEVER REPORTED PAIN. HE WAS REPOSITIONED SEVERAL TIMES AND SEEMED TO REST COMFORTABLY THROUGH THE SHIFT. HE REFUSED ANY PAIN MEDS AND SAID IT ONLY HURT IF HE MOVED. DAY SHIFT WAS CONCERNED ABOUT LOW URINE OUTPUT. HE WAS ABLE TO URINATE WITHOUT ISSUES DURING THE NIGHT. 300 ML ON LAST CHECK. WILL CONTINUE TO MONITOR.
[2019-01-25 07:56] VITALS: BP 132/73
[2019-01-25] MEDS ORDERED: ELIQUIS2.5 MG PO (09:04)
[2019-01-25] MEDS ORDERED: NORCO 5-325 TA1 EAC1 PO (09:05)
[2019-01-25] MEDS ORDERED: DOK PLUS TABLE1 EACH PO (09:06)
[2019-01-25] MEDS ORDERED: SENOKOT-S1 TA2 PO (09:06)
[2019-01-25] MEDS ORDERED: XANAX 0.25 MG0.25 MG PO (09:07)
[2019-01-25 09:20] VITALS: BP 133/50
--- NOTE | 2019-01-25 09:44 | NUR ---
PT CHART COPIED. REPORT GIVEN TO REHAB NURSE. NO IV PRESENT. PT LEFT VIA BED WITH WOUND VAC IN PLACE TO REHAB. FALL RISK PRECAUTIONS IN PLACE. HOURLY ROUNDING COMPLETED.
== END 2019-01-25 09:58 | DRG 467 ==
LOC: M.ERS 05:14 → M.ORTHSURG 06:46 → M.TBA-ER 06:46 → M.ORTHSURG 08:43
PROVIDERS: Orthopaedic Surgery; Personal Emergency Response Attendant; ADMIT Internal Medicine
PROC: 0SPR0JZ Removal of Synthetic Substitute from Right Hip Joint, Femoral Surface, Open Approach (ICD-10-PCS; principal; 2019-01-22)
PROC: 0SRR01A Replacement of Right Hip Joint, Femoral Surface with Metal Synthetic Substitute, Uncemented, Open Approach (ICD-10-PCS; principal; 2019-01-22)
DX: S72.141A Displaced intertrochanteric fracture of right femur, initial encounter for closed fracture (principal); M97.01XA Periprosthetic fracture around internal prosthetic right hip joint, initial encounter; E44.0 Moderate protein-calorie malnutrition; E87.1 Hypo-osmolality and hyponatremia; D62 Acute posthemorrhagic anemia; I10 Essential (primary) hypertension; S01.21XA Laceration without foreign body of nose, initial encounter; F32.9 Major depressive disorder, single episode, unspecified; F41.9 Anxiety disorder, unspecified; K21.9 Gastro-esophageal reflux disease without esophagitis; S00.83XA Contusion of other part of head, initial encounter; F03.90 Unspecified dementia, unspecified severity, without behavioral disturbance, psychotic disturbance, mood disturbance, and anxiety; Z79.82 Long term (current) use of aspirin; Z79.899 Other long term (current) drug therapy; Z68.26 Body mass index [BMI] 26.0-26.9, adult; W01.0XXA Fall on same level from slipping, tripping and stumbling without subsequent striking against object, initial encounter; Y93.89 Activity, other specified; Y92.89 Other specified places as the place of occurrence of the external cause; Y99.8 Other external cause status

== ENCOUNTER 2019-01-25 09:59 | Inpatient (IN) | payer MEDICARE, OTHER ==
[~2019-01-25] VITALS: Ht 172.7 cm; Wt 62.6 kg
[~2019-01-25 09:59] MED LIST changes: +ELIQUIS2.5 MG PO; +NORCO 5-325 TA1 EAC1 PO; +SENOKOT-S1 TA2 PO; +XANAX 0.25 MG0.25 MG PO
[2019-01-25 10:00] VITALS: BP 133/74
[2019-01-26 07:54] VITALS: BP 121/59
[2019-01-26 08:58] LABS: HEMATOCRIT 22.9 % (42.0-52.0); HEMOGLOBIN 7.8 gm/dL (14.0-18.0); MCH 32.6 pg (26.0-34.0); MCV 95.8 fL (80.0-100.0); MPV 6.7 fl. (7.2-11.1); RBC 2.39 mil/uL (4.50-6.00); RDW-CV 14.7 % (10.5-14.5); WBC 9.2 thou/uL (4.0-11.0)
[2019-01-26 09:16] LABS: CREATININE 1.1 mg/dL (0.6-1.3)
[2019-01-26 20:00] VITALS: BP 122/65
[2019-01-27 07:58] VITALS: BP 145/79
[2019-01-27 19:30] VITALS: BP 147/69
[2019-01-28 08:16] VITALS: BP 149/77
[2019-01-28 20:22] VITALS: BP 153/79
[2019-01-29 04:48] LABS: CALCIUM 8.5 mg/dL (8.5-10.1); CREATININE 0.9 mg/dL (0.6-1.3); POTASSIUM 4.4 mmol/L (3.5-5.1)
[2019-01-29 04:50] LABS: HEMATOCRIT 25.9 % (42.0-52.0); HEMOGLOBIN 8.5 gm/dL (14.0-18.0); MPV 7.1 fl. (7.2-11.1); NUCLEATED RBCS 0 /100WBC; RBC 2.67 mil/uL (4.50-6.00); RDW-CV 14.5 % (10.5-14.5); WBC 11.3 thou/uL (4.0-11.0)
[2019-01-29 05:20] LABS: PLATELET COUNT* 396 thou/uL (150-400)
[2019-01-29 07:00] VITALS: BP 159/103
[2019-01-29 08:21] LABS: ABSOLUTE EOSINOPHILS 0.6 thou/uL (0.0-0.7); ABSOLUTE MONOCYTES 0.7 thou/uL (0.0-1.2); HYPOCHROMASIA 2+; MYELOCYTES 2 %; PLATELET ESTIMATE INCREASED; PROMYELOCYTES 1 %
[2019-01-29 08:22] LABS: ANISOCYTOSIS 1+; POLYCHROMASIA 1+
[2019-01-29 20:22] VITALS: BP 144/76
[2019-01-30 08:30] VITALS: BP 151/67
[2019-01-30 20:28] VITALS: BP 164/79
[2019-01-31 08:00] VITALS: BP 155/73
[2019-01-31 20:31] VITALS: BP 127/70
[2019-02-01 08:34] VITALS: BP 150/74
[2019-02-01 19:53] VITALS: BP 133/56
[2019-02-02 08:31] VITALS: BP 127/61
[2019-02-02 19:30] VITALS: BP 132/52
[2019-02-03 08:00] VITALS: BP 159/94
[2019-02-03 19:30] VITALS: BP 127/63
[2019-02-04 08:00] VITALS: BP 130/66
[2019-02-04 19:30] VITALS: BP 121/59
[2019-02-05 04:50] LABS: HEMOGLOBIN 7.5 gm/dL (14.0-18.0); MCH 32.4 pg (26.0-34.0); MCHC 33.9 g/dL (28.0-37.0); MCV 95.7 fL (80.0-100.0); MPV 6.5 fl. (7.2-11.1); NUCLEATED RBCS 0 /100WBC; PLATELET COUNT* 463 thou/uL (150-400); RDW-CV 14.9 % (10.5-14.5)
[2019-02-05 05:12] LABS: CALCIUM 8.2 mg/dL (8.5-10.1); MAGNESIUM 1.9 mg/dL (1.8-2.4); POTASSIUM 4.3 mmol/L (3.5-5.1)
[2019-02-05 06:01] LABS: ABSOLUTE BASOPHILS 0.1 thou/uL (0.0-0.2); ABSOLUTE EOSINOPHILS 0.2 thou/uL (0.0-0.7); ABSOLUTE LYMPHOCYTES 1.3 thou/uL (0.8-5.3); ABSOLUTE MONOCYTES 1.3 thou/uL (0.0-1.2); ATYPICAL LYMPHS 1 %; MYELOCYTES 1 %; PLATELET ESTIMATE INCREASED; POLYCHROMASIA 1+
[2019-02-05 06:02] LABS: ANISOCYTOSIS 1+; HYPOCHROMASIA 1+; POIKILOCYTOSIS 1+
[2019-02-05 08:00] VITALS: BP 111/89
[2019-02-05 19:30] VITALS: BP 113/81
[2019-02-06 07:55] VITALS: BP 178/68
[2019-02-06 20:17] VITALS: BP 152/78
[2019-02-07 08:05] VITALS: BP 146/65
[2019-02-07 20:23] VITALS: BP 126/75
[2019-02-08 08:00] VITALS: BP 141/77
[2019-02-08 19:40] VITALS: BP 132/55
[2019-02-09 08:25] VITALS: BP 103/48
[2019-02-09 19:40] VITALS: BP 139/60
[2019-02-10 08:19] VITALS: BP 144/76
[2019-02-10 21:00] VITALS: BP 140/79
[2019-02-11 05:17] LABS: HEMATOCRIT 24.7 % (42.0-52.0); HEMOGLOBIN 8.3 gm/dL (14.0-18.0); MCH 32.7 pg (26.0-34.0); MCHC 33.6 g/dL (28.0-37.0); MCV 97.4 fL (80.0-100.0); MPV 6.7 fl. (7.2-11.1); RBC 2.54 mil/uL (4.50-6.00); RDW-CV 15.1 % (10.5-14.5); WBC 7.9 thou/uL (4.0-11.0)
[2019-02-11 05:25] LABS: CALCIUM 8.5 mg/dL (8.5-10.1); CREATININE 1.1 mg/dL (0.6-1.3); POTASSIUM 4.2 mmol/L (3.5-5.1)
[2019-02-11 07:20] VITALS: BP 182/59
[2019-02-11 19:30] VITALS: BP 119/48
[2019-02-12 07:30] VITALS: BP 124/71
[2019-02-12] MEDS ORDERED: CALCIUM 600 +1 EAC1 PO (10:31)
[2019-02-12] MEDS ORDERED: SERTRALINE HCL50 MG PO (10:31)
[2019-02-12] MEDS ORDERED: REMERON15 MG PO (10:31)
[2019-02-12] MEDS ORDERED: PLAVIX 75 MG TA75 M1 PO (13:37)
[2019-02-12] MEDS ORDERED: OXYCODONE HCL 55 MG PO (13:41)
[2019-02-12 14:16] VITALS: BP 124/71
[2019-02-12 14:18] VITALS: BP 124/71
[2019-02-12 14:26] VITALS: BP 124/71
== END 2019-02-12 16:06 | disposition home health service (06) | DRG 560 ==
LOC: M.REH 09:59
PROVIDERS: Family Medicine; Internal Medicine; ADMIT Physical Medicine & Rehabilitation
DX: M97.01XA Periprosthetic fracture around internal prosthetic right hip joint, initial encounter (principal); D62 Acute posthemorrhagic anemia; E87.1 Hypo-osmolality and hyponatremia; F03.90 Unspecified dementia, unspecified severity, without behavioral disturbance, psychotic disturbance, mood disturbance, and anxiety; R29.6 Repeated falls; I10 Essential (primary) hypertension; F32.9 Major depressive disorder, single episode, unspecified; Z91.81 History of falling; Z79.899 Other long term (current) drug therapy; Z79.82 Long term (current) use of aspirin

== ENCOUNTER 2019-03-26 12:14 | Inpatient (IN) | payer MEDICARE, OTHER ==
[~2019-03-26] VITALS: Ht 175.3 cm; Wt 59.4 kg
[~2019-03-26 12:14] MED LIST changes: +CALCIUM 600 +1 EAC1 PO; +OXYCODONE HCL 55 MG PO; +PLAVIX 75 MG TA75 M1 PO; +REMERON15 MG PO; +SERTRALINE HCL50 MG PO
[2019-03-26 12:24] VITALS: BP 133/81
[2019-03-26] MEDS ORDERED: CALTRATE 600 +1 EAC1 PO (12:27)
--- NOTE | 2019-03-26 13:40 | NUR ---
PT BROUGHT BACK TO ER ROOM FROM WAITING AREA VIA WHEELCHAIR.
[2019-03-26 14:41] LABS: ABSOLUTE BASOPHILS 0.1 thou/uL (0.0-0.2); ABSOLUTE EOSINOPHILS 0.1 thou/uL (0.0-0.7); ABSOLUTE LYMPHOCYTES 1.1 thou/uL (0.8-5.3); ABSOLUTE MONOCYTES 0.8 thou/uL (0.0-1.2); ABSOLUTE NEUTROPHILS 9.7 thou/uL (1.6-8.1); BASOPHILS 0.9 %; EOSINOPHILS 0.7 %; HEMATOCRIT 31.4 % (42.0-52.0); HEMOGLOBIN 10.2 gm/dL (14.0-18.0); LYMPHOCYTES 9.4 %; MCH 28.5 pg (26.0-34.0); MCHC 32.5 g/dL (28.0-37.0); MCV 87.8 fL (80.0-100.0); MONOCYTES 6.4 %; MPV 7.1 fl. (7.2-11.1); NUCLEATED RBCS 0 /100WBC; PLATELET COUNT* 415 thou/uL (150-400); POLYS 82.6 %; RBC 3.58 mil/uL (4.50-6.00); RDW-CV 15.9 % (10.5-14.5); WBC 11.7 thou/uL (4.0-11.0)
[2019-03-26 14:44] LABS: APTT 28.5 Seconds (25.0-31.3); INR 1.2; POTASSIUM 3.5 mmol/L (3.5-5.1); PROTIME 12.1 Seconds (9.20-11.50)
[2019-03-26 15:00] LABS: ALBUMIN 2.8 g/dL (3.4-5.0); TOTAL BILIRUBIN 0.6 mg/dL (<0.1-1.0); TOTAL PROTEIN 6.9 g/dL (6.4-8.2)
--- NOTE | 2019-03-26 16:45 | EKG ---
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: NAVA : 1930 Requested By: Benito Song Order Number: [id number] MD: Hussein Molina Measurements Intervals Alexander Rate: 69 P: 48 FL: 199 QRS: -85 QRSD: 159 T: -18 QT: 475 QTc: 509 Interpretive Statements Sinus rhythm RBBB and LAFB Compared to ECG 01/21/2019 05:47:18 Left anterior fascicular block now present Myocardial infarct finding no longer present Electronically Signed On 03-26-2019 16:44:51 CDT by Hussein Molina [email or web address] <ELECTRONICALLY SIGNED> By: Hussein Molina MD, FACC 03/26/19 1644 1307 1307 Hussein Molina MD, FAC /EPI
--- NOTE | 2019-03-26 19:03 | NUR ---
REPORT GIVEN TO ALEC HARRISON WHO IS TO ASSUME PT CARE AT THIS TIME.
[2019-03-26 20:00] VITALS: BP 134/69
[2019-03-26 20:03] VITALS: BP 131/65
[2019-03-26 22:59] LABS: URINE BILIRUBIN NEGATIVE (Negative); URINE BLOOD NEGATIVE (Negative); URINE CLARITY CLEAR; URINE COLOR YELLOW; URINE GLUCOSE-RANDOM NEGATIVE (Negative); URINE KETONES NEGATIVE (Negative); URINE LEUKOCYTES-REFLEX NEGATIVE (Negative); URINE NITRITE-REFLEX NEGATIVE (Negative); URINE PROTEIN NEGATIVE (Negative); URINE SPECIFIC GRAVITY <= 1.005 (1.005-1.030); URINE UROBILINOGEN 0.2 E.U./dl (0.2-1.0)
[2019-03-27] VITALS: BP 131/65
[2019-03-27 04:00] VITALS: BP 103/42; BP 137/93
--- NOTE | 2019-03-27 05:02 | NUR ---
RECEIVED REPORT FROM CHRISTY MICHAEL. PT TRANSFERRED TO RM 220. PT A&OX3. NOT ORIENTED TO TIME. FORGETFUL AT TIMES. VSS. MANAGER ENTERPRISE CONTENT MANAGEMENT IN PLACE. ADMISSION HISTORY & PHYSICAL ASSESSMENT COMPLETED AND CHARTED. ORIENTED TO ROOM AND CALL LIGHT. TRIED TO RECONCILE MEDS BUT PT DOESNT REMEMBER HOME MEDS. PT ON O2 AT 2L NC. PT TRACING SR/1ST DEG/BBB ON TELE. PT DENIES ANY PAIN OR DISCOMFORT. UA SPECIMEN SENT TO LAB. PT ABLE TO SLEEP WELL ON BED. CALL LIGHT WITHIN REACH.
[2019-03-27 08:00] VITALS: BP 144/78
[2019-03-27 12:00] VITALS: BP 118/64
--- NOTE | 2019-03-27 14:47 | NUR ---
Pt is A&O. Resides at home with his son. Independent with ADLs. Son completes IADLs. Pt uses a walker for mobility. No o2. Pt is current with [facility] and plans to resume [place]. No hx of SNF. Hx of acute rehab. Goal is home. Following. [facility] [phone]
--- NOTE | 2019-03-27 14:52 | 2DMMODE ---
[place] [address] 2 D/M-MODE ECHOCARDIOGRAM Name: BEATRIZ FORD Room: [address] ADM IN [facility]#: [id number] Admission: 03/26/19 Attend Phys: Irma Cabral Discharge: Date of : [birth year] Date of Service: 03/27/19 1452 Report #: [id number] THIS REPORT FOR: //name// APPROVED REPORT Study performed: 03/27/2019 10:18:34 EXAM: Comprehensive 2D, Doppler, and color-flow Echocardiogram Patient Location: In-Patient Room #: 220 Status: routine BSA: 1.75 HR: 79 bpm BP: 137/93 mmHg Rhythm: NSR Other Information Study Quality: Good Indications Dyspnea 2D Dimensions IVSd: 9.43 (7-11mm) LVOT Diam: 20.07 (18-24mm) LVDd: 55.38 mm PWd: 8.83 (7-11mm) Ascending Ao: 37.06 (22-36mm) LVDs: 37.35 (25-40mm) Aortic Root: 34.16 mm Volumes Left Atrial Volume (Systole) LA ESV Index: 48.30 mL/m2 Aortic Valve AoV Peak Javid.: 1.57 m/s AO Peak Gr.: 9.87 mmHg LVOT Max P.11 mmHg AO Mean Gr.: 5.91 mmHg LVOT Mean P.35 mmHg LVOT Max V: 1.51 m/s AO V2 VTI: 29.19 cm LVOT Mean V: 0.97 m/s LINDSAY (VTI): 2.66 cm2 LVOT V1 VTI: 24.58 cm AI Anson: 3.48 m/s2 AI PHT: 397.17 ms Mitral Valve E/A Ratio: 0.81 [place] [address] 2 D/M-MODE ECHOCARDIOGRAM Name: BEATRIZ FORD Room: [address] IN [facility]#: [id number] Admission: 03/26/19 Attend Phys: Irma Cabral Discharge: Date of : [birth year] Date of Service: 03/27/19 1452 Report #: [id number] MV Decel. Time: 116.03 ms MV E Max Javid.: 1.16 m/s MV PHT: 33.65 ms MVA (PHT): 6.54 cm2 TDI E/Lateral E': 11.60 E/Medial E': 10.55 Medial E' Javid.: 0.11 m/s Lateral E' Javid.: 0.10 m/s Pulmonary Valve PV Peak Javid.: 1.04 m/s PV Peak Gr.: 4.32 mmHg Tricuspid Valve RAP Estimate: 5.00 mmHg TR Peak Gr.: 32.44 mmHg RVSP: 37.00 mmHg PA Pressure: 37.00 mmHg Left Ventricle The left ventricle is normal size. There is normal LV segmental wall motion. There is normal left ventricular wall thickness. Left ventricular systolic function is at the lower limits of normal. LVEF is 50-55%. Grade I - abnormal relaxation pattern. Right Ventricle The right ventricle is normal size. The right ventricular systolic function is normal. Atria Left atrium is mildly dilated. The right atrium size is normal. Aortic Valve Mild aortic valve sclerosis. Moderate aortic regurgitation. There is no aortic valvular stenosis. Mitral Valve The mitral valve is normal in structure. Mild mitral regurgitation. No evidence of mitral valve stenosis. Tricuspid Valve The tricuspid valve is normal in structure. Trace tricuspid regurgitation. Mild pulmonary hypertension. Pulmonic Valve The pulmonary valve is normal in structure[place] [address] 2 D/M-MODE ECHOCARDIOGRAM Name: BEATRIZ FORD Room: [address]#: [id number] Admission: 03/26/19 Attend Phys: Irma Cabral Discharge: Date of : [birth year] Date of Service: 03/27/19 1452 Report #: [id number] valvular regurgitation. Great Vessels The aortic root is normal in size. IVC is normal in size and collapses >50% with inspiration. Pericardium There is no pericardial effusion. <Conclusion> The left ventricle is normal size. There is normal left ventricular wall thickness. Left ventricular systolic function is at the lower limits of normal. LVEF is 50-55%. Grade I - abnormal relaxation pattern. Left atrium is mildly dilated. Mild aortic valve sclerosis. Moderate aortic regurgitation. There is no aortic valvular stenosis. Mild mitral regurgitation. Trace tricuspid regurgitation. Mild pulmonary hypertension. IVC is normal in size and collapses >50% with inspiration. <ELECTRONICALLY SIGNED> By: Aleksander Gallegos MD, FACC 03/27/19 1452 145 145 Aleksander Gallegos MD, FACC /INF
[2019-03-27 16:01] VITALS: BP 119/70
--- NOTE | 2019-03-27 18:23 | NUR ---
PT VSS, SR WITH 1* AV BLOCK ON TELE, ORIENTED TO SELF, PLACE AND TIME. PT HIGH FALL RISK DUE TO WEAKNESS AND SOA ON EXERTION. POSSESSIONS AND CALL IGHT WITHIN REACH. HOURLY RONDING PERFORMED.
[2019-03-27 20:00] VITALS: BP 118/67
[2019-03-28] VITALS: BP 123/70
[2019-03-28 04:00] VITALS: BP 144/84
[2019-03-28 04:39] LABS: HEMATOCRIT 28.7 % (42.0-52.0); HEMOGLOBIN 9.4 gm/dL (14.0-18.0); MCH 29.3 pg (26.0-34.0); MCHC 32.6 g/dL (28.0-37.0); MCV 89.9 fL (80.0-100.0); MPV 7.3 fl. (7.2-11.1); RBC 3.2 mil/uL (4.50-6.00); WBC 9.3 thou/uL (4.0-11.0)
[2019-03-28 04:52] LABS: CALCIUM 8.9 mg/dL (8.5-10.1); CREATININE 1.2 mg/dL (0.6-1.3); MAGNESIUM 1.7 mg/dL (1.8-2.4); POTASSIUM 3.2 mmol/L (3.5-5.1)
--- NOTE | 2019-03-28 06:35 | NUR ---
PT A+OX3. WHEN ASKED WHY HE CAME TO THE HOSPITAL HE STATED "I FELL AND BROKE MY HIP." THEN PT REALIZED THAT WAS A DIFFERENT ADMISSION. PT ALSO HAS SHORT TERM MEMORY ISSUES/SLIGHT CONFUSION. REPORTED THAT HE HAD URINATED IN THE URINAL BUT HAD NOT AND WAS INCONTINENT INSTEAD. DR GUEVARA PAGED FOR ELECTROLYTE REPLACEMENT FOR K+ AND MAG. PT DENIED ANY PAIN. NO OBVIOUS SOA NOTED. TOLERATED 02. ALL LIGHT IN REACH, HOURLY ROUNDING FOR SAFETY,
[2019-03-28 08:00] VITALS: BP 119/59; BP 145/76
[2019-03-28 09:28] VITALS: BP 145/76
--- NOTE | 2019-03-28 10:51 | NUR ---
Pt discharging to home today. Faxed resumption orders and referral to [facility].
[2019-03-28] MEDS ORDERED: FUROSEMIDE 40 M40 MG PO (12:27)
[2019-03-28] MEDS ORDERED: COMBIVENT INH (12:29)
[2019-03-28] MEDS ORDERED: LEVAQUIN 500 M500 M3 PO (12:30)
[2019-03-28 12:44] VITALS: BP 145/76
--- NOTE | 2019-03-28 13:00 | NUR ---
PT VSS, SR ON TELE, HIGH FALL RISK, HOURLY ROUNDING PERFORMED, POSSESSIONS AND CALL LIGHT WITHIN REACH, REC DISCHARGE ORDERS. REVIEWED WITH PT AND SON, REMOVED TELE MONITOR AND IV WITHOUT COMPLICATION. PT TAKEN TO THE FRONT DOOR BY NURSING STAFF AND PICKED UP BY SON
--- NOTE | 2019-04-04 14:24 | CON ---
[address] [address] CONSULTATION Name: BEATRIZ FORD Room: [address] IN M.R.#: [id number] Admission: 03/26/19 Attend Phys: Shawanda Sandoval Discharge: 03/28/19 Date of : [birth year] Report #: [id number] THIS REPORT FOR: //name// CC: Nay Cabral DATE OF SERVICE: 03/27/2019 HISTORY OF PRESENT ILLNESS: This is an 88-year-old male patient who was seen by me for the possibility of normal pressure hydrocephalus. This patient is admitted because of inability to thrive. He had a hip fracture. Since then, he was not eating well. In fact, after coming to the hospital, he did start eating better. His son is here. He does have some history of incontinence. He does have some unsteady gait. REVIEW OF SYSTEMS: Positive for multiple problems which include pleural effusion, hyponatremia, and hip fracture. This was his relevant 14-point review of systems. PAST MEDICAL HISTORY: Positive for hypertension. Apparently, he does have some memory issues. FAMILY HISTORY: Unremarkable. SOCIAL HISTORY: He does not smoke. PHYSICAL EXAMINATION: NEUROLOGICAL: The patient's examination indicates that the patient is alert, responsive, and able to follow simple commands. Cranial nerve examination mostly looks unremarkable. He moves all 4 extremities in spite of his fracture. Neuromuscular examination looks symmetrical. There is no meningeal sign. GENERAL: He is a well-built individual. He does not have any dysmorphic features of eyes, ears, and face. His vision and hearing looks adequate. VITAL SIGNS: His blood pressure is 119/70, respirations 16, pulse is 84, and temperature is 97.7. LABORATORY DATA: White count is 11.7. Sodium is 132. He did have a CT scan of the head and I reviewed that and there is a question of normal pressure hydrocephalus. He did have a TSH and vitamin B12 in October and that was unremarkable. IMPRESSION AND PLAN: This patient has question of normal pressure hydrocephalus. He does have some symptoms suggestive of that, but he needs to be in a better position to evaluate that. In fact, the son indicated that he knows many people who had surgery for normal pressure hydrocephalus without any beneficial effect. I will suggest continue [place] [address] CONSULTATION Name: BEATRIZ FORD Room: [address] IN [facility].#: [id number] Admission: 03/26/19 Attend Phys: Shawanda Sandoval Discharge: 03/28/19 Date of : [birth year] Report #: [id number] the moment. He should make an appointment as an outpatient after he recuperates from the present condition and then the question can be addressed whether we should do a high volume spinal tap. Thank you very much for this referral. <ELECTRONICALLY SIGNED> By: Jordy Alamo MD 04/04/19 1424 1954 Anne Alamo MD /nt
== END 2019-03-28 13:35 | disposition home or self-care (01) | DRG 177 ==
LOC: M.ERS 12:14 → M.2W 16:14 → M.TBA-ER 16:14 → M.2W 20:10
PROVIDERS: Family Medicine; ADMIT Internal Medicine
DX: J15.6 Pneumonia due to other Gram-negative bacteria (principal); J96.01 Acute respiratory failure with hypoxia; I50.41 Acute combined systolic (congestive) and diastolic (congestive) heart failure; E43 Unspecified severe protein-calorie malnutrition; Z68.1 Body mass index [BMI] 19.9 or less, adult; F03.90 Unspecified dementia, unspecified severity, without behavioral disturbance, psychotic disturbance, mood disturbance, and anxiety; F41.9 Anxiety disorder, unspecified; I27.20 Pulmonary hypertension, unspecified; Z79.899 Other long term (current) drug therapy

== ENCOUNTER → 2019-04-16 | Outpatient (CLI) | payer MEDICARE, OTHER ==
[~2019-04-16] MED LIST changes: +CALTRATE 600 +1 EAC1 PO; +COMBIVENT INH; +FUROSEMIDE 40 M40 MG PO; +LEVAQUIN 500 M500 M3 PO
== END ==
LOC: M.RAD 15:24
DX: R06.00 Dyspnea, unspecified (principal)

== ENCOUNTER → 2019-04-29 | Outpatient (CLI) | payer MEDICARE, OTHER | LOC: M.RAD 04-24 16:00 | DX: Z13.820 Encounter for screening for osteoporosis (principal); M85.89 Other specified disorders of bone density and structure, multiple sites; E87.1 Hypo-osmolality and hyponatremia; I50.9 Heart failure, unspecified; D64.9 Anemia, unspecified ==

== ENCOUNTER 2019-06-23 16:25 | Emergency (ER) | payer MEDICARE, OTHER ==
[~2019-06-23] VITALS: Ht 175.3 cm; Wt 61.7 kg
[2019-06-23 17:41] LABS: ABSOLUTE BASOPHILS 0.1 thou/uL (0.0-0.2); ABSOLUTE EOSINOPHILS 0.1 thou/uL (0.0-0.7); ABSOLUTE MONOCYTES 0.6 thou/uL (0.0-1.2); ABSOLUTE NEUTROPHILS 7.8 thou/uL (1.6-8.1); BASOPHILS 1.4 %; EOSINOPHILS 1.3 %; HEMATOCRIT 32.2 % (42.0-52.0); HEMOGLOBIN 11.1 gm/dL (14.0-18.0); LYMPHOCYTES 10.8 %; MCH 30.6 pg (26.0-34.0); MCHC 34.6 g/dL (28.0-37.0); MCV 88.4 fL (80.0-100.0); MONOCYTES 6.1 %; MPV 7.2 fl. (7.2-11.1); NUCLEATED RBCS 0 /100WBC; PLATELET COUNT* 293 thou/uL (150-400); POLYS 80.4 %; RBC 3.64 mil/uL (4.50-6.00); RDW-CV 15.7 % (10.5-14.5); WBC 9.7 thou/uL (4.0-11.0)
[2019-06-23 17:48] LABS: CALCIUM 8.6 mg/dL (8.5-10.1); CREATININE 1.1 mg/dL (0.6-1.3); POTASSIUM 4.1 mmol/L (3.5-5.1)
[2019-06-23 17:54] LABS: ALBUMIN 3.3 g/dL (3.4-5.0); TOTAL BILIRUBIN 0.5 mg/dL (<0.1-1.0); TOTAL PROTEIN 7.5 g/dL (6.4-8.2)
[2019-06-23] MEDS ORDERED: NORCO 5-325 TA1 EAC1 PO (20:07)
[2019-06-23 20:16] LABS: URINE BILIRUBIN NEGATIVE (Negative); URINE BLOOD NEGATIVE (Negative); URINE CLARITY CLEAR; URINE COLOR YELLOW; URINE GLUCOSE-RANDOM NEGATIVE (Negative); URINE KETONES NEGATIVE (Negative); URINE LEUKOCYTES-REFLEX NEGATIVE (Negative); URINE NITRITE-REFLEX NEGATIVE (Negative); URINE PROTEIN TRACE (Negative); URINE SPECIFIC GRAVITY 1.025 (1.005-1.030); URINE UROBILINOGEN 0.2 E.U./dl (0.2-1.0)
[2019-06-23 20:35] VITALS: BP 125/75
--- NOTE | 2019-06-24 11:03 | EKG ---
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: : 1930 Requested By: Adore Sosa Order Number: [id number] MD: Db Blank Measurements Intervals Reva Rate: 77 P: 23 IL: 177 QRS: -110 QRSD: 150 T: 147 QT: 380 QTc: 431 Interpretive Statements Sinus rhythm Right bundle branch block Probable inferior infarct, old Baseline wander in lead(s) I,III,aVR,aVL,V1 Compared to ECG 03/26/2019 13:07:02 no change Electronically Signed On 06-24-2019 11:02:56 LOBSTER CATCHER by Db Blank [email or web address] <ELECTRONICALLY SIGNED> By: Db Blank MD, FAC 06/24/19 1102 1720 1720 Db Blank MD, [facility] /EPI
== END 2019-06-23 20:36 | disposition home or self-care (01) ==
LOC: M.ERS 16:25
PROVIDERS: Nurse Practitioner Family
DX: S22.32XA Fracture of one rib, left side, initial encounter for closed fracture (principal); S51.012A Laceration without foreign body of left elbow, initial encounter; S40.012A Contusion of left shoulder, initial encounter; I10 Essential (primary) hypertension; Z86.2 Personal history of diseases of the blood and blood-forming organs and certain disorders involving the immune mechanism; W18.39XA Other fall on same level, initial encounter; Y92.89 Other specified places as the place of occurrence of the external cause; Y93.89 Activity, other specified; Y99.8 Other external cause status

== ENCOUNTER 2019-06-25 10:45 | Inpatient (IN) | payer MEDICARE, OTHER ==
[~2019-06-25] VITALS: Ht 175.3 cm; Wt 64.0 kg
[2019-06-25 10:54] VITALS: BP 143/78
[2019-06-25 11:20] LABS: HEMATOCRIT 29.8 % (42.0-52.0); HEMOGLOBIN 10.1 gm/dL (14.0-18.0); MCH 30.1 pg (26.0-34.0); MCV 88.6 fL (80.0-100.0); MPV 7.2 fl. (7.2-11.1); NUCLEATED RBCS 0 /100WBC; PLATELET COUNT* 269 thou/uL (150-400); RBC 3.36 mil/uL (4.50-6.00); RDW-CV 15.5 % (10.5-14.5); WBC 11.7 thou/uL (4.0-11.0)
[2019-06-25 11:28] LABS: INR 1.1; PROTIME 11.7 Seconds (9.20-11.50)
[2019-06-25 11:29] LABS: CALCIUM 7.7 mg/dL (8.5-10.1); CREATININE 1.2 mg/dL (0.6-1.3); POTASSIUM 3.8 mmol/L (3.5-5.1)
[2019-06-25 11:39] LABS: ALBUMIN 3.2 g/dL (3.4-5.0); TOTAL PROTEIN 7.2 g/dL (6.4-8.2)
[2019-06-25 11:42] LABS: ABSOLUTE LYMPHOCYTES 0.4 thou/uL (0.8-5.3); ABSOLUTE MONOCYTES 0.4 thou/uL (0.0-1.2); PLATELET ESTIMATE ADEQUATE
[2019-06-25 12:26] VITALS: BP 129/64
--- NOTE | 2019-06-25 15:17 | EKG ---
[place] [address] ELECTROCARDIOGRAM REPORT Name: BEATRIZ FORD Room: [address] ADM IN .R.#: [id number] Admission: 06/25/19 Attend Phys: Atif Giron MD Discharge: Date of : [birth year] Report #: [id number] THIS REPORT FOR: //name// [facility] ED Test Date: 2019-06-25 Test Time: 11:09:41 Pat Name: BEATRIZ FORD Department: Room: [facility] Gender: M Vice President Planning: : 1930 Requested By: Pastor Hull Order Number: [id number] MD: Db Blank Measurements Intervals [place] Rate: 75 P: 23 GA: 208 QRS: -88 QRSD: 169 T: -34 QT: 459 QTc: 513 Interpretive Statements Sinus rhythm Right bundle branch block Inferior infarct, age indeterminate Baseline wander in lead(s) V2 Compared to ECG 06/23/2019 17:20:13 No significant changes Electronically Signed On 06-25-2019 15:16:[address] CONSTRUCTION INSPECTOR by Db Blank [email or web address] <ELECTRONICALLY SIGNED> By: Db Blank MD, FAC 06/25/19 1516 1109 1109 Db Blank MD, [facility] /EPI
[2019-06-25 16:00] VITALS: BP 150/72
--- NOTE | 2019-06-25 16:40 | 2DMMODE ---
[place] [address] 2 D/M-MODE ECHOCARDIOGRAM Name: BEATRIZ FORD Room: [address] IN [facility]#: [id number] Admission: 06/25/19 Attend Phys: Atif Giron, Discharge: Date of : [birth year] Date of Service: 06/25/19 1639 Report #: [id number] THIS REPORT FOR: //name// APPROVED REPORT Study performed: 06/25/2019 15:40:41 EXAM: Comprehensive 2D, Doppler, and color-flow Echocardiogram Patient Location: In-Patient Room #: [facility] Status: routine BSA: 1.78 HR: 83 bpm BP: 129/64 mmHg Rhythm: NSR Other Information Study Quality: Fair Indications Congestive Heart Failure 2D Dimensions IVSd: 12.56 (7-11mm) LVOT Diam: 19.58 (18-24mm) LVDd: 45.61 mm PWd: 11.72 (7-11mm) LVDs: 37.17 (25-40mm) Aortic Root: 33.98 mm Volumes Left Atrial Volume (Systole) LA ESV Index: 54.50 mL/m2 Aortic Valve AoV Peak Javid.: 1.26 m/s AO Peak Gr.: 6.31 mmHg LVOT Max P.02 mmHg AO Mean Gr.: 3.65 mmHg LVOT Mean P.01 mmHg LVOT Max V: 1.00 m/s AO V2 VTI: 24.42 cm LVOT Mean V: 0.66 m/s LINDSAY (VTI): 2.40 cm2 LVOT V1 VTI: 19.49 cm AI Gilmer: 3.34 m/s2 AI PHT: 368.53 ms Mitral Valve E/A Ratio: 0.65 [place] [address] 2 D/M-MODE ECHOCARDIOGRAM Name: BEATRIZ FORD Room: [address] IN .R.#: [id number] Admission: 06/25/19 Attend Phys: Atif Giron, Discharge: Date of : [birth year] Date of Service: 06/25/19 1639 Report #: [id number] MV Decel. Time: 201.92 ms MV E Max Javid.: 0.90 m/s MV PHT: 58.56 ms MVA (PHT): 3.76 cm2 TDI E/Lateral E': 11.25 E/Medial E': 15.00 Medial E' Javid.: 0.06 m/s Lateral E' Javid.: 0.08 m/s Tricuspid Valve RAP Estimate: 5.00 mmHg TR Peak Gr.: 46.85 mmHg RVSP: 51.00 mmHg PA Pressure: 51.00 mmHg Left Ventricle The left ventricle is normal size. There is global hypokinesis of the left ventricle. Mild concentric left ventricular hypertrophy. Left ventricular systolic function is mildly decreased. LVEF is 40-45%. Right Ventricle The right ventricle is normal size. The right ventricular systolic function is normal. Atria Left atrium is severely dilated. The right atrium size is normal. Aortic Valve Mild aortic valve sclerosis. Mild aortic regurgitation. There is no aortic valvular stenosis. Mitral Valve The mitral valve is normal in structure. Mild mitral annular calcification. Mild mitral regurgitation. No evidence of mitral valve stenosis. Tricuspid Valve The tricuspid valve is normal in structure. Trace tricuspid regurgitation. estimated pa pressure 55 mm Hg Pulmonic Valve Pulmonic valve is not well visualized. There is no pulmonic [place] [address] 2 D/M-MODE ECHOCARDIOGRAM Name: BEATRIZ FORD Christy Room: [address] IN [facility]#: [id number] Admission: 06/25/19 Attend Phys: Atif Giron, Discharge: Date of : [birth year] Date of Service: 06/25/19 1639 Report #: [id number] Great Vessels The aortic root is normal in size. The inferior vena cava is not well visualized. Pericardium There is no pericardial effusion. <Conclusion> Mild concentric left ventricular hypertrophy. LVEF is 40-45%. Left atrium is severely dilated. Mild aortic valve sclerosis. Mild aortic regurgitation. Mild mitral regurgitation. Trace tricuspid regurgitation. estimated pa pressure 55 mm Hg <ELECTRONICALLY SIGNED> By: Db Blank MD, FACC 06/25/191638 38 38 Db Blank MD, FAC /INF
[2019-06-25 17:26] LABS: URINE BILIRUBIN NEGATIVE (Negative); URINE BLOOD NEGATIVE (Negative); URINE CLARITY CLEAR; URINE COLOR YELLOW; URINE GLUCOSE-RANDOM NEGATIVE (Negative); URINE KETONES NEGATIVE (Negative); URINE LEUKOCYTES NEGATIVE (Negative); URINE NITRITE NEGATIVE (Negative); URINE PROTEIN NEGATIVE (Negative); URINE SPECIFIC GRAVITY <= 1.005 (1.005-1.030); URINE UROBILINOGEN 0.2 E.U./dl (0.2-1.0)
[2019-06-25 17:29] LABS: URINE POTASSIUM-RANDOM 21.7 mmol/L
[2019-06-25 20:30] VITALS: BP 127/70
[2019-06-25 23:47] VITALS: BP 133/73
[2019-06-26 04:00] VITALS: BP 140/79
[2019-06-26 05:06] LABS: ABSOLUTE BASOPHILS 0.1 thou/uL (0.0-0.2); ABSOLUTE EOSINOPHILS 0.1 thou/uL (0.0-0.7); ABSOLUTE LYMPHOCYTES 1.1 thou/uL (0.8-5.3); BASOPHILS 0.5 %; EOSINOPHILS 0.7 %; HEMOGLOBIN 9.6 gm/dL (14.0-18.0); LYMPHOCYTES 9.6 %; MCH 29.8 pg (26.0-34.0); MCHC 34.3 g/dL (28.0-37.0); MCV 86.8 fL (80.0-100.0); MONOCYTES 8.7 %; MPV 7.7 fl. (7.2-11.1); NUCLEATED RBCS 0 /100WBC; PLATELET COUNT* 253 thou/uL (150-400); POLYS 80.5 %; RBC 3.22 mil/uL (4.50-6.00); RDW-CV 15.6 % (10.5-14.5); WBC 11.2 thou/uL (4.0-11.0)
[2019-06-26 05:14] LABS: CALCIUM 7.5 mg/dL (8.5-10.1); POTASSIUM 3.3 mmol/L (3.5-5.1)
[2019-06-26 08:00] VITALS: BP 154/86
[2019-06-26] MEDS ORDERED: FOSAMAX 70 MG T70 MG PO (10:37)
[2019-06-26 11:42] VITALS: BP 123/64
[2019-06-26 12:35] LABS: POTASSIUM 3.3 mmol/L (3.5-5.1)
[2019-06-26 16:09] VITALS: BP 117/82
[2019-06-26 19:30] VITALS: BP 131/77
[2019-06-27] VITALS: BP 124/67
[2019-06-27 03:43] VITALS: BP 129/74
[2019-06-27 05:16] LABS: ABSOLUTE BASOPHILS 0.1 thou/uL (0.0-0.2); ABSOLUTE EOSINOPHILS 0.3 thou/uL (0.0-0.7); ABSOLUTE MONOCYTES 0.8 thou/uL (0.0-1.2); ABSOLUTE NEUTROPHILS 6.3 thou/uL (1.6-8.1); BASOPHILS 0.8 %; EOSINOPHILS 3.8 %; HEMATOCRIT 29.6 % (42.0-52.0); HEMOGLOBIN 10.2 gm/dL (14.0-18.0); LYMPHOCYTES 11.9 %; MCH 30.1 pg (26.0-34.0); MCHC 34.3 g/dL (28.0-37.0); MCV 87.9 fL (80.0-100.0); MONOCYTES 9.8 %; MPV 8.8 fl. (7.2-11.1); NUCLEATED RBCS 0 /100WBC; PLATELET COUNT* 249 thou/uL (150-400); POLYS 73.7 %; RBC 3.37 mil/uL (4.50-6.00); RDW-CV 15.8 % (10.5-14.5); WBC 8.5 thou/uL (4.0-11.0)
[2019-06-27 05:52] LABS: CALCIUM 7.5 mg/dL (8.5-10.1)
[2019-06-27 08:00] VITALS: BP 125/60
[2019-06-27 15:30] VITALS: BP 116/66
[2019-06-27 20:30] VITALS: BP 121/61
[2019-06-28 07:40] VITALS: BP 120/59
[2019-06-28] MEDS ORDERED: FLOMAX0.4 MG PO (10:17)
[2019-06-28] MEDS ORDERED: TRAMADOL 50 MG50 MG PO (10:17)
[2019-06-28] MEDS ORDERED: LISINOPRIL2.5 M1 PO (10:23)
[2019-06-28 12:05] LABS: CALCIUM 8.2 mg/dL (8.5-10.1); CREATININE 1.3 mg/dL (0.6-1.3); POTASSIUM 3.2 mmol/L (3.5-5.1)
[2019-06-28 16:15] VITALS: BP 127/64
[2019-06-28 19:50] VITALS: BP 127/55
[2019-06-29 04:56] LABS: CREATININE 1.3 mg/dL (0.6-1.3); POTASSIUM 4.1 mmol/L (3.5-5.1)
[2019-06-29 07:40] VITALS: BP 102/53
[2019-06-29 16:00] VITALS: BP 145/75
[2019-06-29 19:40] VITALS: BP 122/56
[2019-06-30 07:28] VITALS: BP 143/66
[2019-06-30 16:00] VITALS: BP 124/64
--- NOTE | 2019-07-01 11:03 | CON ---
[address] [address] CONSULTATION Name: BEATRIZ FORD Room: [address] IN .R.#: [id number] Admission: 06/25/19 Attend Phys: Atif Giron MD Discharge: 06/30/19 Date of : [birth year] Report #: [id number] THIS REPORT FOR: //name// CC: [facility] DATE OF SERVICE: 06/26/2019 CONSULTING PHYSICIAN: Atif Giron MD REASON FOR NEPHROLOGY CONSULTATION: Congestive heart failure exacerbation and hyponatremia. REASON FOR ADMISSION: Shortness of breath and weight gain. HISTORY OF PRESENT ILLNESS: This is an 88-year-old male who has past medical history of hypertension, possible dementia, phimosis, and history of falls. He lives at home with his son, who was brought in by the patient's son because according to the patient's son the patient had gained about 3 pounds in one night and was also short of breath and does not use any oxygen at home. The patient is needing 2 liters of oxygen here. He thinks his breathing is better. He is alert and oriented x 3 right now. Yesterday, when he presented to the hospital, his creatinine was 1.0 but his sodium was 123. He was given a dose of Lasix because of chest x-ray evidence of congestive heart failure exacerbation and according to his clinical history as well. His bladder scan showed 500 mL of urine, so Sandhu catheter was placed. He had about 1450 mL urine output since he has been here. His sodium did improve to 125 this morning. Potassium is 3.3 this morning. His echocardiogram was also completed and showed ejection fraction of 45% with pulmonary artery pressure of 55 mmHg. ALLERGIES: No known allergies. REVIEW OF SYSTEMS: As mentioned in history of present illness. Otherwise, 10-point review of systems are negative. HOME MEDICATIONS: Include hydrocodone, mirtazapine, sertraline, ferrous sulfate, pantoprazole, multivitamins, aspirin, acetaminophen, senna, and docusate. The patient denies taking any NSAIDs. Alprazolam, calcium carbonate, furosemide 40 mg 1 tablet p.o. daily, and Combivent. PAST MEDICAL AND SURGICAL HISTORY: Includes hypertension; AMS; encephalopathy; hyponatremia, his sodium runs in early 130s normally; history of falls; dementia; pernicious anemia; right hip fracture on 01/16/2019; and right total hip arthroplasty in 12/2018. FAMILY HISTORY: Noncontributory [place] [id number] CONSULTATION Name: LILIANABEATRIZ Christy Room: [address]#: [id number] Admission: 06/25/19 Attend Phys: Atif Giron MD Discharge: 06/30/19 Date of : [birth year] Report #: [id number] SOCIAL HISTORY: He does not smoke, drink alcohol, or use illicit drugs. He lives at home with his son. PHYSICAL EXAMINATION: VITAL SIGNS: Blood pressure is 140/79, pulse rate is 78, temperature 36.5, respiratory rate is 18, and pulse ox on 2 liters of oxygen is 98%. GENERAL: He is awake and alert and oriented x 3. HEAD AND EYES: Atraumatic and normocephalic. Normal conjunctivae. EARS, NOSE, AND THROAT: Normal ears and nose. Mucous membranes are moist. NECK: There is JVD about 2 cm to 3 cm. CHEST: Bilaterally posteriorly, there are crackles present. CARDIOVASCULAR: S1, S2 normal. No murmurs. ABDOMEN: Soft, nontender, and nondistended. Bowel sounds are present. EXTREMITIES: There is maybe trace lower extremity edema. NEUROLOGICAL: He is alert and oriented x 3. PSYCHIATRIC: Mood levi and affect levi, he seems to be depressed. LABORATORY DATA: WBC 11.2, hemoglobin is 9.6, and platelet count is 253. Sodium is 125, potassium 3.3, chloride is 90, BUN is 17, and creatinine is 1.0. White count is 11.2, hemoglobin is 9.6, urine sodium is 98, and other labs are reviewed. IMAGING: Chest x-ray was reviewed. ASSESSMENT: 1. Hyponatremia which is likely [id number] hyponatremia. It looks like his baseline sodium is around 130s and this [id number] hyponatremia seems to be in the setting of fluid overload. It is possible that the patient's p.o. intake is also not great. Sodium was 123 on presentation. Cortisol has been ordered. TSH was normal at 2.023. He is also on Zoloft which can also cause hyponatremia. Remeron can be associated with hyponatremia as well. He was also retaining some urine which can also contribute to hyponatremia. 2. Hypokalemia. It could be because of poor oral intake and use of Lasix. 3. Congestive heart failure, [id number], looks like diastolic. Ejection fraction 45% and pulmonary artery pressure of 55 mmHg. 4. Metabolic alkalosis. 5. History of depression. 6. History of dementia. PLAN: I will be replacing his potassium. He does look mildly fluid overloaded, and we will put him on a Lasix drip in order to diurese him better at 2.5 mg an hour. Strict I's and O's. Fluid restriction 1 liter a day. Sodium should not rise more than 6-8 mEq in 24-[place] [id number] CONSULTATION Name: BEATRIZ FORD Room: [address] IN M.R.#: [id number] Admission: 06/25/19 Attend Phys: Atif Giron MD Discharge: 06/30/19 Date of : [birth year] Report #: [id number] Sodium and potassium will be for 12 p.m., and nursing has been asked to call me if the sodium goes up by greater than 3 points or if it drops by any point. We may continue Remeron and Zoloft for now, but may have to make changes if sodium does not improve. We will also check a cortisol level. I have added Flomax to help with urinary retention. Maintain Sandhu for now. Thank you for this consultation. We will continue to follow with you. Discussed with the patient and the patient's nurse. <ELECTRONICALLY SIGNED> By: Destiney Ivroy MD 07/01/19 [id number] Ivory MD /nt
== END 2019-06-30 19:05 | DRG 291 ==
LOC: M.ERS 10:45 → M.TBA-ER 11:56 → M.2W 11:56 → M.3W 06-27 14:14
PROVIDERS: Emergency Medicine; Internal Medicine; Internal Medicine Nephrology; ADMIT Internal Medicine
DX: I11.0 Hypertensive heart disease with heart failure (principal); G93.41 Metabolic encephalopathy; E87.1 Hypo-osmolality and hyponatremia; E87.3 Alkalosis; F03.90 Unspecified dementia, unspecified severity, without behavioral disturbance, psychotic disturbance, mood disturbance, and anxiety; Z96.641 Presence of right artificial hip joint; I50.23 Acute on chronic systolic (congestive) heart failure; E87.6 Hypokalemia; F32.9 Major depressive disorder, single episode, unspecified; Z91.81 History of falling; Z79.82 Long term (current) use of aspirin; Z79.891 Long term (current) use of opiate analgesic; Z79.899 Other long term (current) drug therapy

== ENCOUNTER 2019-06-30 14:42 | Inpatient (IN) | payer MEDICARE, OTHER ==
[~2019-06-30] VITALS: Ht 175.3 cm; Wt 57.8 kg
[~2019-06-30 14:42] MED LIST changes: +FLOMAX0.4 MG PO; +FOSAMAX 70 MG T70 MG PO; +LISINOPRIL2.5 M1 PO; +TRAMADOL 50 MG50 MG PO
[2019-06-30 19:00] VITALS: BP 121/62
[2019-07-01 05:36] LABS: HEMATOCRIT 31.2 % (42.0-52.0); HEMOGLOBIN 10.8 gm/dL (14.0-18.0); MCH 30.6 pg (26.0-34.0); MCHC 34.4 g/dL (28.0-37.0); MPV 7.4 fl. (7.2-11.1); RBC 3.51 mil/uL (4.50-6.00); RDW-CV 15.8 % (10.5-14.5)
[2019-07-01 05:38] LABS: CALCIUM 8.3 mg/dL (8.5-10.1); CREATININE 1.5 mg/dL (0.6-1.3); POTASSIUM 3.8 mmol/L (3.5-5.1)
[2019-07-01 07:31] VITALS: BP 137/71
[2019-07-01 19:00] VITALS: BP 126/71
[2019-07-02 07:56] VITALS: BP 120/61
[2019-07-02 12:23] LABS: HEMOGLOBIN 11.1 gm/dL (14.0-18.0); MCHC 33.6 g/dL (28.0-37.0); MCV 89.4 fL (80.0-100.0); MPV 7.2 fl. (7.2-11.1); RBC 3.69 mil/uL (4.50-6.00); RDW-CV 15.9 % (10.5-14.5); WBC 10.5 thou/uL (4.0-11.0)
[2019-07-02 12:34] LABS: CALCIUM 8.2 mg/dL (8.5-10.1); CREATININE 1.4 mg/dL (0.6-1.3); MAGNESIUM 1.8 mg/dL (1.8-2.4); POTASSIUM 3.9 mmol/L (3.5-5.1)
[2019-07-02 19:54] VITALS: BP 115/61
[2019-07-03 03:52] LABS: HEMATOCRIT 29.4 % (42.0-52.0); HEMOGLOBIN 9.9 gm/dL (14.0-18.0); MCH 30.1 pg (26.0-34.0); MCHC 33.8 g/dL (28.0-37.0); MCV 89.1 fL (80.0-100.0); MPV 7.2 fl. (7.2-11.1); RBC 3.3 mil/uL (4.50-6.00); RDW-CV 15.4 % (10.5-14.5); WBC 9.7 thou/uL (4.0-11.0)
[2019-07-03 04:05] LABS: CALCIUM 8.1 mg/dL (8.5-10.1); CREATININE 1.2 mg/dL (0.6-1.3); MAGNESIUM 1.7 mg/dL (1.8-2.4); POTASSIUM 3.5 mmol/L (3.5-5.1)
[2019-07-03 07:47] VITALS: BP 119/57
[2019-07-03 20:00] VITALS: BP 119/45
[2019-07-04 08:22] VITALS: BP 96/55
[2019-07-04 10:56] VITALS: BP 130/70
[2019-07-04 20:28] VITALS: BP 95/56
[2019-07-05 04:34] LABS: CALCIUM 8.5 mg/dL (8.5-10.1); CREATININE 1.3 mg/dL (0.6-1.3); POTASSIUM 3.6 mmol/L (3.5-5.1)
[2019-07-05 08:00] VITALS: BP 124/50
[2019-07-05 19:30] VITALS: BP 103/60
[2019-07-06 08:00] VITALS: BP 96/75
[2019-07-06 08:03] VITALS: BP 93/55
[2019-07-06 08:15] VITALS: BP 96/75
[2019-07-06] MEDS ORDERED: ALPRAZOLAM PO (09:32)
[2019-07-06] MEDS ORDERED: SUPER THERAVIT1 EACH PO (09:39)
[2019-07-06] MEDS ORDERED: DULCOLAX STOOL100 M1 PO (09:40)
== END 2019-07-06 11:00 | disposition home health service (06) | DRG 291 ==
LOC: M.REH 14:42
PROVIDERS: Internal Medicine; ADMIT Physical Medicine & Rehabilitation
DX: I11.0 Hypertensive heart disease with heart failure (principal); G93.41 Metabolic encephalopathy; I50.23 Acute on chronic systolic (congestive) heart failure; E87.1 Hypo-osmolality and hyponatremia; R53.81 Other malaise; F03.90 Unspecified dementia, unspecified severity, without behavioral disturbance, psychotic disturbance, mood disturbance, and anxiety; N40.0 Benign prostatic hyperplasia without lower urinary tract symptoms